=== PATIENT | female | born 1935 | race Caucasian/White ===

== ENCOUNTER → 2023-09-17 12:11 | Outpatient (REF) | payer MEDICARE, SELFPAY ==
[2023-09-17 12:39] LABS: % Basophils 0.6 %; % Eosinophils 4.4 %; % Immature Granulocytes 0.3 %; % Lymphocytes 31.5 %; % Monocytes 12.4 %; % Neutrophils 50.8 %; Absolute Eosinophils 0.3 10^3/uL; Absolute Lymphocytes 2.1 10^3/uL; Absolute Monocytes 0.8 10^3/uL; Absolute Neutrophils 3.4 10^3/uL; Hematocrit 32.2 %; Hemoglobin 9.9 g/dL; Mean Corp Hgb Conc. 30.7 g/dL; Mean Corpuscular Hgb 24.4 pg; Mean Corpuscular Volume 79.3 fL; Mean Platelet Volume 11.5 fL; Nucleated Red Blood Cells % 0 %; Platelet Count 310 10^3/uL; Red Blood Cell Count 4.06 10^6/uL; Red Cell Dist. Width 14.7 %; White Blood Cell Count 6.6 10^3/uL
[2023-09-17 13:09] LABS: ALT (SGPT) < 10 U/L; AST (SGOT) 20 U/L; Albumin 3.2 g/dl; Alkaline Phosphatase 64 U/L; Blood Urea Nitrogen 30 mg/dl; Carbon Dioxide 24 mmol/L; Chloride 103 mmol/L; Glucose 91 mg/dl; HDL Cholesterol 66 mg/dl; LDL Cholesterol, Calculated 103 mg/dl; Potassium 4.9 mmol/L; Sodium 136 mmol/L; Total Bilirubin 0.4 mg/dl; Total Cholesterol 179 mg/dl; Total Protein 5.4 g/dl; Triglyceride 50 mg/dl; Very Low Density Lipoprotein 10 mg/dl
[2023-09-17 13:26] LABS: Free T4 0.95 ng/dl; Vitamin D, 25-OH*** 15.1 ng/mL
[2023-09-17 13:39] LABS: TSH 0.06 uIU/ml
[2023-09-17 13:59] LABS: Vitamin B12 267 pg/ml
[2023-09-18 11:06] LABS: Glycohemoglobin (HgbA1c) 5.8 %
== END ==
LOC: OLABMERCHI 12:11
PROVIDERS: ATTENDING PHYSICIAN Hospitalist
DX: D64.9 Anemia, unspecified (principal); R94.4 Abnormal results of kidney function studies; E78.5 Hyperlipidemia, unspecified; E03.9 Hypothyroidism, unspecified; E11.9 Type 2 diabetes mellitus without complications; D51.9 Vitamin B12 deficiency anemia, unspecified; E55.9 Vitamin D deficiency, unspecified
CPT/HCPCS: 36415; 80053; 80061; 82306; 82607; 83036; 84439; 84443; 85025

== ENCOUNTER → 2023-12-03 09:36 | Outpatient (REF) | payer MEDICARE, SELFPAY ==
[2023-12-03 11:02] LABS: Blood Urea Nitrogen 20 mg/dl; Calcium 9.3 mg/dl; Carbon Dioxide 26 mmol/L; Chloride 106 mmol/L; Glucose 90 mg/dl; Potassium 4.9 mmol/L; Sodium 135 mmol/L
== END ==
LOC: OLABMERCHI 09:36
PROVIDERS: ATTENDING PHYSICIAN Hospitalist; FAMILY PHYSICIAN Nurse Practitioner Gerontology
DX: R94.4 Abnormal results of kidney function studies (principal)
CPT/HCPCS: 36415; 80048

== ENCOUNTER → 2024-09-01 09:14 | Outpatient (REF) | payer MEDICARE, SELFPAY ==
[2024-09-01 10:21] LABS: % Basophils 0.5 % (0-2); % Eosinophils 3.5 % (0-6); % Immature Granulocytes 0.8 % (0-0.5); % Lymphocytes 25.6 % (20.5-51.1); % Monocytes 10.3 % (1.7-9.3); % Neutrophils 59.3 % (42.2-75.2); Absolute Eosinophils 0.3 10^3/uL (0-0.7); Absolute Immature Granulocytes 0.1 10^3/uL (0-0.05); Absolute Monocytes 0.8 10^3/uL (0.1-0.6); Absolute Neutrophils 4.6 10^3/uL (1.4-6.5); Hematocrit 22.7 % (37.0-47.0); Hemoglobin 6.3 g/dL (12.0-16.0); Mean Corp Hgb Conc. 27.8 g/dL (33.0-37.0); Mean Corpuscular Hgb 19.7 pg (27.0-31.0); Mean Corpuscular Volume 70.9 fL (81.0-99.0); Mean Platelet Volume 9.6 fL (7.4-10.4); Nucleated Red Blood Cells % 0 %; Platelet Count 433 10^3/uL (130-400); Red Cell Dist. Width 17.3 % (11.5-14.5); White Blood Cell Count 7.8 10^3/uL (4.8-10.8)
[2024-09-01 10:41] LABS: ALT (SGPT) < 10 U/L (0-35); AST (SGOT) 18 U/L (14-36); Albumin 3.2 g/dl (3.5-5.0); Alkaline Phosphatase 54 U/L (38-126); Blood Urea Nitrogen 26 mg/dl (7-17); Calcium 8.6 mg/dl (8.4-10.2); Carbon Dioxide 27 mmol/L (22-30); Chloride 100 mmol/L (98-107); Glucose 99 mg/dl (70-99); Potassium 4.7 mmol/L (3.5-5.1); Sodium 136 mmol/L (135-145); Total Bilirubin 0.1 mg/dl (0.2-1.3); Total Protein 5.4 g/dl (6.3-8.2); eGFR 33.52
[2024-09-03 02:15] LABS: ANA, IgG Reflex to HEp-2 None Detected (None Detected)
[2024-09-04 13:14] LABS: Albumin 3.09 g/dL (3.75-5.01); Alpha 1 Globulin 0.29 g/dL (0.19-0.46); Alpha 2 Globulin 0.65 g/dL (0.48-1.05); SPEP IFE Reflex IFE Done; Total Protein-Electrophoresis 5.3 g/dL (6.3-8.2)
[2024-09-05 06:44] LABS: IgA 101 mg/dL (68-408); IgG 656 mg/dL (768-1632); IgM 26 mg/dL (35-263)
== END ==
LOC: OLABMERCHI 09:14
PROVIDERS: ATTENDING PHYSICIAN Hospitalist; FAMILY PHYSICIAN Internal Medicine Hematology & Oncology
DX: N18.9 Chronic kidney disease, unspecified (principal); I10 Essential (primary) hypertension
CPT/HCPCS: 36415; 80053; 82784; 84155; 84165; 85025; 86038; 86334

== ENCOUNTER 2024-09-02 06:26 | Inpatient (IN) | payer MEDICARE, BC, SELFPAY ==
[2024-09-01 19:20] VITALS: BP 131/75
[2024-09-01 19:40] LABS: % Basophils 0.2 % (0-2); % Eosinophils 1.1 % (0-6); % Immature Granulocytes 0.5 % (0-0.5); % Lymphocytes 11.8 % (20.5-51.1); % Monocytes 6.6 % (1.7-9.3); % Neutrophils 79.8 % (42.2-75.2); Absolute Eosinophils 0.2 10^3/uL (0-0.7); Absolute Immature Granulocytes 0.1 10^3/uL (0-0.05); Absolute Lymphocytes 1.6 10^3/uL (1.2-3.4); Absolute Monocytes 0.9 10^3/uL (0.1-0.6); Absolute Neutrophils 10.9 10^3/uL (1.4-6.5); Hematocrit 25.3 % (37.0-47.0); Hemoglobin 7.1 g/dL (12.0-16.0); Mean Corp Hgb Conc. 28.1 g/dL (33.0-37.0); Mean Corpuscular Hgb 19.8 pg (27.0-31.0); Mean Corpuscular Volume 70.5 fL (81.0-99.0); Mean Platelet Volume 8.6 fL (7.4-10.4); Nucleated Red Blood Cells % 0 %; Platelet Count 470 10^3/uL (130-400); Red Blood Cell Count 3.59 10^6/uL (4.20-5.40); Red Cell Dist. Width 17.3 % (11.5-14.5); White Blood Cell Count 13.6 10^3/uL (4.8-10.8)
[2024-09-01 19:49] LABS: ALT (SGPT) 12 U/L (0-35); AST (SGOT) 21 U/L (14-36); Albumin 3.9 g/dl (3.5-5.0); Alkaline Phosphatase 70 U/L (38-126); Blood Urea Nitrogen 32 mg/dl (7-17); Carbon Dioxide 25 mmol/L (22-30); Chloride 98 mmol/L (98-107); Glucose 133 mg/dl (70-99); Potassium 4.5 mmol/L (3.5-5.1); Sodium 131 mmol/L (135-145); Total Bilirubin 0.1 mg/dl (0.2-1.3); Total Protein 6.3 g/dl (6.3-8.2); eGFR 36.41
[2024-09-01 19:57] LABS: Anisocytosis 3+; Hypochromasia 3+; Macrocytosis 3+; Ovalocytes 1+; Stomatocytes 1+; Target Cells Occasional
[2024-09-01 19:58] LABS: Tear Drop Red Blood Cells Occasional
[2024-09-01 20:21] LABS: Normal RBC Morphology No
[2024-09-02] VITALS (17 sets, daily range): BP systolic 121–143; BP diastolic 63–79; PULSE 100–101; O2SAT 98; BMI 20.7; BMI 29.2
--- NOTE | 2024-09-02 01:43 | ED.GENMED ---
History of Present Illness
General
Chief Complaint: Abnormal Lab Value
Exam Limitations: none
Time Seen by Provider: 09/02/24 00:41
Nursing documentation reviewed up to this point in time: agreed with
History of Present Illness
History of Present Illness:
Patient is an 89-year-old female from assisted living sent for low hemoglobin. Patient felt weak last week and had blood work ordered and was sent to the ER for abnormal low hemoglobin of 6.3.(Patient had blood work done here at [facility]
this morning at 7:50 AM) she currently does not feel weak at this time. She does have a history of chronic kidney disease and family reports she was recently seen by [facility] . They are going to monitor her renal
function and plan to do a urinalysis and renal ultrasound.
Patient again has no complaints presently does not feel weak now denies any chest pain shortness of breath.
She is not on blood thinners. She denies any black stool.
Review of Systems
Review of Systems
Allergies reviewed?: Yes
All Other Systems: ROS reviewed and negative except as documented in HPI and ROS
Constitutional: Reports no symptoms, fatigue and other (Pt had weakness last week has since resolved ); Denies fever or chills
Respiratory: Reports no symptoms
Cardiac: Reports no symptoms
ABD/GI: Reports no symptoms; Denies bloody stools or black stools
: Reports no symptoms
Musculoskeletal: Reports no symptoms
Skin: Reports no symptoms
Neurological: Reports no symptoms
Endocrine: Reports no symptoms
Psychiatric: Reports no symptoms
Phy Exam
General Physical Exam
General Presentation: no apparent distress
General age: appears stated age
General Skin: warm and dry
General Habitus: normal
General Mental: alert
General Hydration: appears well hydrated
Cardiovascular Exam
Cardiovascular Exam: regular rate/rhythm, normal peripheral pulses and systolic murmur
Pulmonary Exam
Pulmonary Exam: lungs clear and no respiratory distress
Gastrointestinal Exam
Gastrointestinal Exam: non tender, soft and other (brown stool heme neg )
Neurological Exam
Neurological Exam: alert and oriented x3
Musculoskeletal Exam
Musculoskeletal Exam: full ROM
Skin Exam
Skin Exam: normal color and warm/dry
Psychiatric Exam
Psychiatric Exam: normal mood/affect
Course
Orders/Labs/Results
Orders:
Orders
09/01/24 19:30
Type And Crossmatch [Type+Screen] Urgent
Complete Blood Count/With Diff Urgent
Comprehensive Metabolic Panel Urgent
09/01/24 19:49
ABO2 Urgent
BBK Wristband Number:
Associate notified that ABO2 has been ordered: [id number]
Date: 09/01/24
Time: 19:37
Public Health Policy Analyst ID: [id number]
Abnormal Lab Results
09/01/24
19:30
WBC 13.6 H 10^3/uL
(4.8-10.8)
RBC 3.59 L 10^6/uL
(4.20-5.40)
Hgb 7.1 L g/dL
(12.0-16.0)
Hct 25.3 L %
(37.0-47.0)
MCV 70.5 L fL
(81.0-99.0)
MCH 19.8 L pg
(27.0-31.0)
MCHC 28.1 L g/dL
(33.0-37.0)
RDW 17.3 H %
(11.5-14.5)
Plt Count 470 H 10^3/uL
(130-400)
Abs Immat Gran (auto) 0.1 H 10^3/uL
(0-0.05)
Absolute Neuts (auto) 10.9 H 10^3/uL
(1.4-6.5)
Absolute Monos (auto) 0.9 H 10^3/uL
(0.1-0.6)
Neutrophils % 79.8 H %
(42.2-75.2)
Lymphocytes % 11.8 L %
(20.5-51.1)
Sodium 131 L mmol/L
(135-145)
BUN 32 H mg/dl
(7-17)
Creatinine 1.4 H mg/dL
(0.6-1.0)
Glucose 133 H mg/dl
(70-99)
Total Bilirubin 0.1 L mg/dl
(0.2-1.3)
09/01/24 19:30
09/01/24 19:30
Vital Signs
Initial and Last Documented VS:
Initial Vital Signs
Temp Pulse Resp BP Pulse Ox
97.8 F 108 18 131/75 98
09/01/24 19:20 09/01/24 19:20 09/01/24 19:20 09/01/24 19:20 09/01/24 19:20
Last Documented Vital Signs
Temp Pulse Resp BP Pulse Ox
97.8 F 90 19 133/64 98
09/01/24 19:20 09/02/24 01:15 09/02/24 01:15 09/02/24 01:04 09/02/24 01:15
X Ray Developer consulted with Physician
X Ray Developer consulted with physician?: Yes
Name of Physician Consulted: Noh
MDM/Problems Addressed
Differential Diagnosis Includes:
not limited to: Anemia, GI bleed, anemia of chronic disease
MDM/Problems Addressed:
Patient is an 89-year-old female with new onset anemia. Patient has been feeling weak last week though does feel slightly improved this week . Patient's hemoglobin from this morning was 6 .3 repeat 7.1. CBC reviewed occasional teardrop cells with
new onset anemia and symptoms Case discussed ED physician would recommend admission and transfusion for 1 unit of packed red blood cells. heme neg Consent obtained.
Pt with renal insufficiency recently saw outpatient nephrology . US was reccomended but not done yet.
Chronic conditions affecting care:
Renal insufficiency
*Pulse Oximetry
Patient hypoxic: no
*Critical Care Note
Total Time (30-74mins, 75-104mins- exclusive of procedures): Not Applicable
ED Attending Note
-
Portions of this chart may have been created with voice recognition software.� Occasional wrong word or��sound alike� substitutions may have occurred due to the inherent limitations of voice recognition software.
Discharge Plan
Departure
Patient Disposition: Admit
Date of Disposition: 09/02/24
Time of Disposition: 02:54
Admit to: Med/Surg
Admit to doctor: bubba
Presentation/result/management discussed w/ accepting MD/DO: Hospitalist
Patient with high blood pressure during this ER visit?: Yes
Condition: Fair
Covid-19: Not Applicable
Discharge Problem:
Anemia
Referrals:
Huyen Simon, DO [Family Provider] -
Interventions
Interventions:
*Risk Screen - Suicide Last Done: 09/01/24 19:20
*General Assessment Last Done: 09/01/24 19:20
*Neglect/Abuse Screening Last Done: 09/01/24 19:20
ED- Fall Risk Assessment Last Done: 09/02/24 01:07
*ED COVID-19 Vaccine History Last Done: 09/01/24 19:20
Discharge Date and Time
Print Language: WELSH
--- NOTE | 2024-09-02 06:21 | HPS.HSE ---
Family Physician
-
Family Physician: Huyen Simon DO
Chief Complaint
-
Abnormal Lab
History of Present Illness
Patient is an 89y F with PMH significant for CKD who presents to ED for evaluation of anemia. Patient states that she has been feeling very weak for several weeks. No other focal / specific symptoms. No noted blood loss including bloody or
black stools, hematuria, bloody nose, etc. Patient had outpatient labs done and Hgb this Am was noted to be very low at 6.3 g/dL. Patient was advised to present to the ED for further evaluation.
Patient denies any chest pain or dyspnea. She was not aware of any prior history of anemia - though prior values here show chronic anemia with previous baseline in the 9-10 range.
Medical History
Past Medical History
Past Medical History: Reports Other
Additional Past Medical History:
CKD
Past Surgical History: Reports None
Social History
Tobacco: Non-smoker
Alcohol: None
Family History
Family History: Not pertinent
Allergies / Home Medications
Allergies reflects when Allergies were last updated in [employer].
Home Medications with original date entered in [employer]
Allergy/Medication List:
Allergies
Allergy/AdvReac Type Severity Reaction Status Date / Time
No Known Allergies Allergy Unverified 09/01/24 19:20
Home Medications
L-Methyfola 7.5 mg PO DAILY 09/02/24
Tylenol 650 mg PO Q6H PRN pain 09/02/24
Vitamin D3 50 mcg PO DAILY 09/02/24
Review of Systems
-
History Source: Patient
A 12 point ROS was completed and negative except as noted: Yes
Constitutional: Reports Fatigue; Denies Fever or Chills
Respiratory: Denies Cough or Trouble Breathing
Cardiac: Denies Chest Pain or Palpitations
Abdomen/GI: Denies Abdominal Pain, Nausea, Vomiting, Diarrhea, Bloody Stools or Black Stools
: Denies Dysuria, Frequency or Bleeding
Musculoskeletal: Denies Joint Pain or Edema
Neurological: Denies Dizzy or Headache
Psych: Denies Depression or Anxiety
Physical Exam
Vital Signs
Vital Signs
Temp Pulse Resp BP Pulse Ox
98.7 F 87 20 134/67 97
09/02/24 05:41 09/02/24 05:41 09/02/24 05:41 09/02/24 05:41 09/02/24 03:38
Physical Exam
General: Other (89y F pale-appearing and in no acute distress.)
HEENT: Moist mucous membranes and PERRLA
Respiratory: Clear; No Wheezes, Rales or Rhonchi
Cardiac: S1/S2 and Regular Rhythm; No Murmur
GI: Soft, Non Tender, Non Distended and Normal Bowel Sounds
Musculoskeletal: No Clubbing, No Cyanosis and No Edema
Neuro: AO x 3 and Nonfocal/grossly intact
Laboratory Results
-
09/01/24 19:30
09/01/24 19:30
Laboratory Results
Total Bilirubin 0.1 mg/dl (0.2-1.3) L 09/01/24 19:30
AST 21 U/L (14-36) 09/01/24 19:30
ALT 12 U/L (0-35) 09/01/24 19:30
Alkaline Phosphatase 70 U/L (38-126) 09/01/24 19:30
Impression/Plan
-
A/P: Patient is an 89y F with PMH significant for CKD (recently noted / diagnosed) who presents to ED for evaluation of anemia.
Symptomatic Anemia
- Admit for further evaluation and treatment.
- Unknown acuity - but patient complaining of fatigue recently.
- No evidence source of blood loss.
- Heme negative stool in the ED.
- Check iron studies, retic count, B12, etc.
- Follow H&H for changes.
- ? anemia of CKD given that history.
CKD
- Stable. Renal function at / near known baseline.
- Check renal US.
- Follow for any changes.
DVT Prophylaxis: SCDs
Code Status: Full
[2024-09-02 07:31] LABS: Reticulocyte Count 0.8 % (0.4-2.8)
[2024-09-02 07:52] LABS: Iron 37 ug/dl (37-170)
[2024-09-02 08:02] LABS: Percent Saturation 8 % (20-50); Total Iron Binding Capacity 436 ug/dl (265-497)
[2024-09-02 08:24] LABS: TSH Reflex To Free T4 0.23 uIU/ml (0.47-4.68)
[2024-09-02 08:28] LABS: Ferritin 4.9 ng/ml (11.1-264.0)
[2024-09-02 08:37] LABS: Urine Albumin Negative (Neg - Trace); Urine Bilirubin Negative (Negative); Urine Character Clear (Clear); Urine Color Yellow; Urine Glucose Negative (Negative); Urine Ketone Negative (Negative); Urine Leukocyte Negative (Negative); Urine Nitrite Negative (Negative); Urine Occult Blood Negative (Negative); Urine Urobilinogen Negative (Neg - 1+)
[2024-09-02 08:59] LABS: Folate > 20.0 ng/ml (2.76-20); Vitamin B12 265 pg/ml (239-931)
[2024-09-02 09:35] LABS: Free T4 0.95 ng/dl (0.78-2.19)
[2024-09-02 13:14] LABS: % Basophils 0.3 % (0-2); % Eosinophils 0.7 % (0-6); % Immature Granulocytes 0.4 % (0-0.5); % Lymphocytes 13.4 % (20.5-51.1); % Monocytes 12.1 % (1.7-9.3); % Neutrophils 73.1 % (42.2-75.2); Absolute Eosinophils 0.1 10^3/uL (0-0.7); Absolute Lymphocytes 1.5 10^3/uL (1.2-3.4); Absolute Monocytes 1.3 10^3/uL (0.1-0.6); Absolute Neutrophils 8.1 10^3/uL (1.4-6.5); Hematocrit 25.2 % (37.0-47.0); Hemoglobin 7.4 g/dL (12.0-16.0); Mean Corp Hgb Conc. 29.4 g/dL (33.0-37.0); Mean Corpuscular Hgb 21.3 pg (27.0-31.0); Mean Corpuscular Volume 72.4 fL (81.0-99.0); Mean Platelet Volume 9.6 fL (7.4-10.4); Nucleated Red Blood Cells % 0 %; Platelet Count 408 10^3/uL (130-400); Red Blood Cell Count 3.48 10^6/uL (4.20-5.40); Red Cell Dist. Width 18.9 % (11.5-14.5)
--- NOTE | 2024-09-02 13:33 | W.PN.HOSP.TC ---
Today's Communication/Plan
-
IV iron
Oral B12
CBC in the morning
Assessment / Plan
Assessment / Plan
Gen-awake, alert, NAD
HEENT-NC, AT, anicteric, clear oral mm
Neck-supple
CV-reg, no M, +S1/S2
Lungs-clear B/L
Abd-soft, NT, ND
Ext-no edema
Musculoskeletal-no cyanosis, clubbing
Skin-warm and dry
Neuro-grossly non-focal
Psych-calm, cooperative
Symptomatic anemia -improved symptoms after transfusion. Hemoglobin 7.4 this morning, will recheck tomorrow morning.
Iron deficiency anemia noted on labs. Start IV iron. Will need outpatient GI follow-up for EGD and colonoscopy. Text message sent to GI office front desk manager to schedule. Discussed with patient and brother on the phone.
B12 deficiency noted, start oral repletion.
Patient denies bloody stools or black stools. Denies use of NSAIDs.
Hyponatremia -131.
CKD 3B -stable.
Dementia -unknown type.
Full code
Dispo -likely discharge tomorrow if stable. Will need outpatient follow-up. Discussed with brother on the phone.
Anticipated Discharge: Within 24 hours
Subjective/Interval History
-
Date of Service: September 02, 2024
Patient seen and examined. No complaints.
Objective Data
-
Labs:
Laboratory Results
09/02/24 09/02/24
07:20 13:01
WBC 11.0 H Cancelled
Hgb 7.4 L Cancelled
Hct 25.2 L Cancelled
Plt Count 408 H Cancelled
Vital Signs:
Vital Signs
Temp Pulse Resp BP Pulse Ox
98.5 F 90 18 143/74 97
09/02/24 10:50 09/02/24 10:50 09/02/24 10:50 09/02/24 10:50 09/02/24 10:50
I&O
09/01/24 09/02/24 09/03/24
06:59 06:59 06:59
Intake Total 250 / 250
Balance 250 / 250
Review of Systems
-
History Source: Patient
All other systems: Reviewed and negative
--- NOTE | 2024-09-02 15:39 | CM ---
Addendum entered by Kim Chauhan 09/02/24 16:11:
Spoke with Brother Ruben, he will transport patient back tomorrow. Please call when ready for d/c. He will need to sign IMM.
Original Note:
Patient seen bedside.
patient from [facility] p# [phone].
Spoke with Janee Carlos/director patient ambulatory in room, sent over to hospital for blood work.
patient currently getting IV FE.
Per Janee able to accept back tomorrow.
Brother may be able to transport back, CM attempted to reach brother via Cell phone, no answer, attempted home phone- disconnected.
Patient would qualify for ambulance transport and will need IMM completed.
[facility]
report#[phone]
[2024-09-02] MEDS: FERRLECIT 110 MG IV (15:53)
[2024-09-02] MEDS: VITAMIN B-12 1000 MCG PO (15:54)
[2024-09-03 07:03] VITALS: BP 143/82
[2024-09-03 08:08] LABS: Blood Urea Nitrogen 26 mg/dl (7-17); Calcium 8.8 mg/dl (8.4-10.2); Carbon Dioxide 24 mmol/L (22-30); Chloride 102 mmol/L (98-107); Estimated Creatinine Clearance 17 ml/min; Glucose 98 mg/dl (70-99); Potassium 4.5 mmol/L (3.5-5.1); Sodium 135 mmol/L (135-145); eGFR 43.81
[2024-09-03 08:22] LABS: Hematocrit 26.1 % (37.0-47.0); Hemoglobin 7.9 g/dL (12.0-16.0); Mean Corp Hgb Conc. 30.3 g/dL (33.0-37.0); Mean Corpuscular Hgb 21.5 pg (27.0-31.0); Mean Corpuscular Volume 71.1 fL (81.0-99.0); Mean Platelet Volume 9.4 fL (7.4-10.4); Platelet Count 432 10^3/uL (130-400); Red Blood Cell Count 3.67 10^6/uL (4.20-5.40); Red Cell Dist. Width 18.6 % (11.5-14.5); White Blood Cell Count 10.9 10^3/uL (4.8-10.8)
[2024-09-03] MEDS: VITAMIN B-12 1000 MCG PO (08:23)
--- NOTE | 2024-09-03 10:18 | W.DS.TRANS ---
DC Summary - Cane Pusher
-
Discharge Instructions:
Discharge Diagnosis/Procedures Iron deficiency anemia
Diet Regular
Activity As tolerated
Driving Restrictions No driving
Bathing Restrictions None
Blood Work CBC in 1 week with your primary care doctor
Instructions:
Stand-Alone Forms:
Changes to Home Medications: No
Discharge Medications:
DC Medications w/original date entered in [employer]
acetaminophen 325 mg tablet (Tylenol) 650 mg PO Q6HPRN PRN mild pain 09/02/24
cholecalciferol (vitamin D3) 50 mcg (2,000 unit) capsule (Vitamin D3) 50 mcg PO DAILY 09/02/24
cyanocobalamin (vitamin B-12) 1,000 mcg tablet 1,000 mcg PO DAILY #30 tabs 09/02/24
ferrous sulfate 325 mg (65 mg iron) tablet 325 mg PO DAILY #30 tabs 09/02/24
levomefolate 7.5 mg-algal oil 90.314 mg capsule (L-Methylfolate Forte) 1 cap PO DAILY 09/02/24
Home Medication Changes
Pending Results: No
--- NOTE | 2024-09-03 10:20 | W.PN.HOSP.TC ---
Today's Communication/Plan
-
Discharge
Assessment / Plan
Assessment / Plan
Gen-awake, alert, NAD
HEENT-NC, AT, anicteric, clear oral mm
Neck-supple
CV-reg, no M, +S1/S2
Lungs-clear B/L
Abd-soft, NT, ND
Ext-no edema
Musculoskeletal-no cyanosis, clubbing
Skin-warm and dry
Neuro-grossly non-focal
Psych-calm, cooperative
Symptomatic anemia -improved symptoms after 1 unit PRBC transfusion. Hemoglobin improved to 7.9 today. Check CBC next week with primary care doctor.
Iron deficiency anemia noted on labs. Discharged on oral iron. Will need outpatient GI follow-up for EGD and colonoscopy. She has an appointment to follow-up with GI on September 05.
B12 deficiency noted, start oral repletion.
Patient denies bloody stools or black stools. Denies use of NSAIDs.
Hyponatremia - resolved.
SHAMA on CKD 3B -renal function improved. SHAMA present on admission.
Dementia -unknown type.
Full code
Dispo -medically stable for discharge today. Updated patient's brother on the phone. All questions answered.
32 minutes spent in discharge process.
Anticipated Discharge: Today
Subjective/Interval History
-
Date of Service: September 03, 2024
Patient seen and examined. No complaints.
Objective Data
-
Labs:
Laboratory Results
09/03/24
07:21
WBC 10.9 H
Hgb 7.9 L
Hct 26.1 L
Plt Count 432 H
Sodium 135
Potassium 4.5
Chloride 102
Carbon Dioxide 24
BUN 26 H
Creatinine 1.2 H
Glucose 98
Calcium 8.8
Vital Signs:
Vital Signs
Temp Pulse Resp BP Pulse Ox
97.4 F 94 18 143/82 95
09/03/24 07:03 09/03/24 07:03 09/03/24 07:03 09/03/24 07:03 09/03/24 07:30
I&O
09/02/24 09/03/24 09/04/24
06:59 06:59 06:59
Intake Total 250 / 250 720 / 720
Balance 250 / 250 720 / 720
Review of Systems
-
Unable to obtain full review of systems at this time due to: Dementia
History Source: Patient
All other systems: Reviewed and negative
--- NOTE | 2024-09-03 10:55 | CM ---
Patient seen at bedside.
Discharge today to [facility]
PT rec HH
Spoke with Alma liaison from [facility]. They can accept
CM consult completed - VN
Spoke with brothemilio Miranda - will transport
IMM explained & signed. In chart
PLAN[facility]
report#[phone]

[facility] fax #: [phone]
[2024-09-03 11:28] VITALS: BP 109/57
== END 2024-09-03 12:50 | disposition home or self-care (01) | DRG 812 ==
LOC: 4 WEST ACU 06:26
PROVIDERS: Emergency Medicine; Nurse Practitioner; ADMITTING PHYSICIAN Hospitalist; ATTENDING PHYSICIAN Hospitalist; EMERGENCY PHYSICIAN Emergency Medicine; FAMILY PHYSICIAN Hospitalist
PROC: 30233N1 Transfusion of Nonautologous Red Blood Cells into Peripheral Vein, Percutaneous Approach (ICD-10-PCS; 2024-09-02)
DX: D50.9 Iron deficiency anemia, unspecified (principal); E87.1 Hypo-osmolality and hyponatremia; N17.9 Acute kidney failure, unspecified; N18.32 Chronic kidney disease, stage 3b; F03.90 Unspecified dementia, unspecified severity, without behavioral disturbance, psychotic disturbance, mood disturbance, and anxiety; E53.8 Deficiency of other specified B group vitamins
CPT/HCPCS: 36415; 36430; 73502; 76770; 80048; 80053; 81003; 82607; 82728; 82746; 83540; 83550; 84155; 84165; 84439; 84443; 85025; 85027; 85045; 86038; 86850; 86900; 86901; 86920; 87070; 93005; 97162; 97165; 99285; J2916; P9016

== ENCOUNTER → 2024-09-08 12:27 | Outpatient (REF) | payer MEDICARE, BC, SELFPAY ==
[2024-09-08 13:07] LABS: % Basophils 0.5 % (0-2); % Immature Granulocytes 0.3 % (0-0.5); % Lymphocytes 31.6 % (20.5-51.1); % Neutrophils 52.6 % (42.2-75.2); Absolute Eosinophils 0.2 10^3/uL (0-0.7); Absolute Lymphocytes 1.9 10^3/uL (1.2-3.4); Absolute Monocytes 0.7 10^3/uL (0.1-0.6); Absolute Neutrophils 3.2 10^3/uL (1.4-6.5); Hematocrit 26.8 % (37.0-47.0); Hemoglobin 7.7 g/dL (12.0-16.0); Mean Corp Hgb Conc. 28.7 g/dL (33.0-37.0); Mean Corpuscular Hgb 21.4 pg (27.0-31.0); Mean Corpuscular Volume 74.4 fL (81.0-99.0); Mean Platelet Volume 9.8 fL (7.4-10.4); Nucleated Red Blood Cells % 0 %; Platelet Count 424 10^3/uL (130-400); Red Cell Dist. Width 20.3 % (11.5-14.5); White Blood Cell Count 6.1 10^3/uL (4.8-10.8)
== END ==
LOC: OLABMERCHI 12:27
PROVIDERS: ATTENDING PHYSICIAN Hospitalist
DX: D50.9 Iron deficiency anemia, unspecified (principal); I25.10 Atherosclerotic heart disease of native coronary artery without angina pectoris; E11.9 Type 2 diabetes mellitus without complications; I50.9 Heart failure, unspecified
CPT/HCPCS: 36415; 85025

== ENCOUNTER → 2024-09-15 11:44 | Outpatient (REF) | payer MEDICARE, BC, SELFPAY ==
[2024-09-15 12:27] LABS: % Basophils 0.3 % (0-2); % Eosinophils 4.4 % (0-6); % Immature Granulocytes 0.3 % (0-0.5); % Lymphocytes 31.9 % (20.5-51.1); % Monocytes 12.6 % (1.7-9.3); % Neutrophils 50.5 % (42.2-75.2); Absolute Eosinophils 0.3 10^3/uL (0-0.7); Absolute Lymphocytes 2.1 10^3/uL (1.2-3.4); Absolute Monocytes 0.8 10^3/uL (0.1-0.6); Absolute Neutrophils 3.2 10^3/uL (1.4-6.5); Hematocrit 25.9 % (37.0-47.0); Hemoglobin 7.6 g/dL (12.0-16.0); Mean Corp Hgb Conc. 29.3 g/dL (33.0-37.0); Mean Corpuscular Hgb 22.3 pg (27.0-31.0); Mean Platelet Volume 10.3 fL (7.4-10.4); Nucleated Red Blood Cells % 0 %; Platelet Count 346 10^3/uL (130-400); Red Blood Cell Count 3.41 10^6/uL (4.20-5.40); Red Cell Dist. Width 21.1 % (11.5-14.5); White Blood Cell Count 6.4 10^3/uL (4.8-10.8)
== END ==
LOC: OLABMERCHI 11:44
PROVIDERS: ATTENDING PHYSICIAN Hospitalist
DX: E55.9 Vitamin D deficiency, unspecified (principal); I10 Essential (primary) hypertension; D64.9 Anemia, unspecified
CPT/HCPCS: 36415; 85025

== ENCOUNTER 2024-10-03 14:49 | Emergency (ER) | payer MEDICARE, BC, SELFPAY ==
[2024-10-03 14:54] VITALS: BP 110/67
[2024-10-03 15:34] LABS: % Basophils 0.5 % (0-2); % Eosinophils 1.1 % (0-6); % Immature Granulocytes 0.5 % (0-0.5); % Lymphocytes 17.2 % (20.5-51.1); % Monocytes 10.4 % (1.7-9.3); % Neutrophils 70.3 % (42.2-75.2); Absolute Eosinophils 0.1 10^3/uL (0-0.7); Absolute Lymphocytes 1.1 10^3/uL (1.2-3.4); Absolute Monocytes 0.7 10^3/uL (0.1-0.6); Absolute Neutrophils 4.7 10^3/uL (1.4-6.5); Hematocrit 37.7 % (37.0-47.0); Mean Corp Hgb Conc. 29.2 g/dL (33.0-37.0); Mean Corpuscular Hgb 22.5 pg (27.0-31.0); Mean Corpuscular Volume 77.1 fL (81.0-99.0); Mean Platelet Volume 10.4 fL (7.4-10.4); Nucleated Red Blood Cells % 0 %; Platelet Count 369 10^3/uL (130-400); Red Blood Cell Count 4.89 10^6/uL (4.20-5.40); Red Cell Dist. Width 22.9 % (11.5-14.5); White Blood Cell Count 6.6 10^3/uL (4.8-10.8)
[2024-10-03 15:49] LABS: ALT (SGPT) 13 U/L (0-35); AST (SGOT) 23 U/L (14-36); Albumin 4.4 g/dl (3.5-5.0); Alkaline Phosphatase 71 U/L (38-126); Blood Urea Nitrogen 30 mg/dl (7-17); Calcium 10.2 mg/dl (8.4-10.2); Carbon Dioxide 22 mmol/L (22-30); Chloride 94 mmol/L (98-107); Glucose 144 mg/dl (70-99); Potassium 4.6 mmol/L (3.5-5.1); Sodium 134 mmol/L (135-145); Total Bilirubin 0.8 mg/dl (0.2-1.3); Total Protein 6.6 g/dl (6.3-8.2); eGFR 36.41
[2024-10-03 15:50] LABS: Anisocytosis 2+; Normal RBC Morphology No
[2024-10-03 15:51] LABS: Hypochromasia 2+; Microcytosis 1+
[2024-10-03 15:52] LABS: Acanthocytes Occasional; Ovalocytes 1+
[2024-10-03 17:02] VITALS: BP 114/86
--- NOTE | 2024-10-03 17:06 | ED.GENMED ---
History of Present Illness
General
Chief Complaint: Weakness
Source: patient and family
Exam Limitations: none
Time Seen by Provider: 10/03/24 16:31
Nursing documentation reviewed up to this point in time: agreed with
History of Present Illness
History of Present Illness:
Patient to ED for concern of weakness. Family states she was admitted here earlier this month and treated for anemia. SHe was transfused while here and discharged on FeSO4 and B12. Family states facililty reported that she seemed weak today and
were concerned that she is anemic again. Brought to ED by family for eval.
Past History
Past History
ED Past Medical History: Renal failure (CKD), Psychiatric (dementia) and Other (anemia)
Review of Systems
Review of Systems
Allergies reviewed?: Yes
All Other Systems: ROS reviewed and negative except as documented in HPI and ROS
Constitutional: Reports no symptoms
EENT: Reports no symptoms
Respiratory: Reports no symptoms
Cardiac: Reports no symptoms
ABD/GI: Reports no symptoms
: Reports no symptoms
Musculoskeletal: Reports no symptoms
Skin: Reports no symptoms
Neurological: Reports weakness
Psychiatric: Reports no symptoms
Phy Exam
General Physical Exam
General Presentation: well appearing and no apparent distress
General age: appears stated age
General Skin: warm and dry
General Habitus: frail
General Mental: confused (baseline) and usual mental status
General Hydration: appears well hydrated
Cardiovascular Exam
Cardiovascular Exam: regular rate/rhythm and no edema
Pulmonary Exam
Pulmonary Exam: no respiratory distress and chest non tender
Gastrointestinal Exam
Gastrointestinal Exam: non tender, soft, no organomegaly, non distended and no cva tenderness
Neurological Exam
Neurological Exam: alert, CN II-XII intact, no motor deficits, no sensory deficits, speech normal, confused (baseline) and normal gait
Musculoskeletal Exam
Musculoskeletal Exam: full ROM and neuro vasc intact
Skin Exam
Skin Exam: normal color, warm/dry and no rash
Psychiatric Exam
Psychiatric Exam: normal mood/affect
Course
Orders/Labs/Results
Orders:
Orders
10/03/24 14:56
Electrocardiogram (*1) Urgent
Reason for Study: Fatigue / Weakness
EKG- Treatment ONCE
10/03/24 15:07
Type+Screen Urgent
Complete Blood Count/With Diff Urgent
Comprehensive Metabolic Panel Urgent
10/03/24 17:10
Urinalysis Reflex To Culture Urgent
Date Specimen was Collected: 10/03/24
Time Specimen was Collected: 17:09
Urine Microscopic Reflex Cult Urgent
Urine Culture Urgent
CIPRIANO Source: U
Specimen Description:
Date Specimen was Collected: 10/03/24
Time Specimen was Collected: 17:09
Abnormal Lab Results
10/03/24 10/03/24
15:07 17:10
Hgb 11.0 L g/dL
(12.0-16.0)
MCV 77.1 L fL
(81.0-99.0)
MCH 22.5 L pg
(27.0-31.0)
MCHC 29.2 L g/dL
(33.0-37.0)
RDW 22.9 H %
(11.5-14.5)
Absolute Lymphs (auto) 1.1 L 10^3/uL
(1.2-3.4)
Absolute Monos (auto) 0.7 H 10^3/uL
(0.1-0.6)
Lymphocytes % 17.2 L %
(20.5-51.1)
Monocytes % 10.4 H %
(1.7-9.3)
Sodium 134 L mmol/L
(135-145)
Chloride 94 L mmol/L
(98-107)
BUN 30 H mg/dl
(7-17)
Creatinine 1.4 H mg/dL
(0.6-1.0)
Glucose 144 H mg/dl
(70-99)
Urine Ketones 3+ A
(Negative)
Leukocyte Esterase Rfl 2+ A
(Negative)
Urine Bacteria (Reflex) Moderate A
(Negative)
Urine Albumin (Reflex) 2+ A
(Neg - Trace)
10/03/24 15:07
10/03/24 15:07
Vital Signs
Initial and Last Documented VS:
Initial Vital Signs
Temp Pulse Resp BP Pulse Ox
97.8 F 98 16 110/67 98
10/03/24 14:54 10/03/24 14:54 10/03/24 14:54 10/03/24 14:54 10/03/24 14:54
Last Documented Vital Signs
Temp Pulse Resp BP Pulse Ox
97.8 F 87 21 113/72 97
10/03/24 14:54 10/03/24 16:45 10/03/24 16:45 10/03/24 18:00 10/03/24 17:01
*Critical Care Note
Total Time (30-74mins, 75-104mins- exclusive of procedures): Not Applicable
Update Note
Update Note:
Labs reviewed with patient and family. Hgb now 11. VSS. She is eating and drinking in dept. UA results noted. Culture is pending. Patient and family are aware that culture will result over the next 24 hours and that she will be notified if
antibiotics needed. SHe is agreeable to discharge home, relieved to find she is not in need of transfusion for anemia.
ED Attending Note
-
Portions of this chart may have been created with voice recognition software.� Occasional wrong word or��sound alike� substitutions may have occurred due to the inherent limitations of voice recognition software.
Discharge Plan
Departure
Patient Disposition: Home (Routine Discharge)
Date of Disposition: 10/03/24
Time of Disposition: 18:35
Patient with high blood pressure during this ER visit?: No
Condition: Good
Covid-19: Not Applicable
Discharge Problem:
Weakness
Instructions: Generalized Weakness (DC)
Prescriptions:
No Action
acetaminophen [Tylenol] 325 mg Tablet
650 mg PO Q6HPRN PRN (Reason: mild pain)
cholecalciferol (vitamin D3) [Vitamin D3] 50 mcg (2,000 unit) Capsule
50 mcg PO DAILY
L-Methylfolate Forte 7.5-90.314 mg Capsule
1 cap PO DAILY
cyanocobalamin (vitamin B-12) 1,000 mcg Tablet
1,000 mcg PO DAILY Qty: 30 0RF
ferrous sulfate 325 mg (65 mg iron) tablet
325 mg PO DAILY Qty: 30 0RF
Referrals:
Huyen Simon, DO [Family Provider] - Tomorrow
Interventions
Interventions:
*Risk Screen - Suicide Last Done: 10/03/24 14:54
*General Assessment Last Done: 10/03/24 18:44
*Neglect/Abuse Screening Last Done: 10/03/24 14:54
ED- Fall Risk Assessment Last Done: 10/03/24 18:44
*ED COVID-19 Vaccine History Last Done: 10/03/24 17:02
*Nursing Disposition Last Done: 10/03/24 18:44
ED- Cardiac Assessment Last Done: 10/03/24 17:01
ED- Neurological Assessment Last Done: 10/03/24 17:01
ED- Pulmonary Assessment Last Done: 10/03/24 17:01
Discharge Date and Time
Discharge Date/Time: 10/03/24 18:45
Print Language: HEBREW
[2024-10-03 17:53] LABS: Urine Albumin 2+ (Neg - Trace); Urine Bilirubin Negative (Negative); Urine Character Slightly Cloudy (Clear); Urine Color Yellow; Urine Glucose Negative (Negative); Urine Ketone 3+ (Negative); Urine Leukocyte 2+ (Negative); Urine Nitrite Negative (Negative); Urine Occult Blood Negative (Negative); Urine Specific Gravity 1.025 (<1.030); Urine Urobilinogen Negative (Neg - 1+)
[2024-10-03 18:00] VITALS: BP 113/72
[2024-10-03 18:07] LABS: Urine Mucus Few; Urine Squamous Cell 0-2 /LPF (Few)
[2024-10-03 18:08] LABS: Urine Bacteria Moderate (Negative); Urine Red Blood Cell 0-2 /HPF (0-2)
== END 2024-10-03 18:45 | disposition home or self-care (01) ==
LOC: EMR 14:49
PROVIDERS: Emergency Medicine; Nurse Practitioner; EMERGENCY PHYSICIAN Emergency Medicine; FAMILY PHYSICIAN Hospitalist
DX: R53.1 Weakness (principal)
CPT/HCPCS: 99284; 80053; 81003; 81015; 85025; 86850; 86900; 86901; 87077; 87086; 93005

== ENCOUNTER → 2024-10-04 16:23 | Outpatient (REF) | payer MEDICARE, BC, SELFPAY | LOC: RAD 16:23 | PROVIDERS: ATTENDING PHYSICIAN Internal Medicine Gastroenterology | DX: D50.0 Iron deficiency anemia secondary to blood loss (chronic) (principal); R63.4 Abnormal weight loss | CPT/HCPCS: 74176 ==

== ENCOUNTER → 2024-10-11 12:38 | Outpatient (REF) | payer MEDICARE, BC, SELFPAY | LOC: HWRAD 12:38 | PROVIDERS: ATTENDING PHYSICIAN Internal Medicine Interventional Cardiology | DX: N18.9 Chronic kidney disease, unspecified (principal) | CPT/HCPCS: 76775 ==

== ENCOUNTER → 2024-10-25 16:31 | Outpatient (REF) | payer MEDICARE, BC, SELFPAY ==
[2024-10-25 17:21] LABS: % Basophils 0.6 % (0-2); % Eosinophils 3.6 % (0-6); % Immature Granulocytes 0.1 % (0-0.5); % Lymphocytes 27.4 % (20.5-51.1); % Monocytes 10.4 % (1.7-9.3); % Neutrophils 57.9 % (42.2-75.2); Absolute Eosinophils 0.2 10^3/uL (0-0.7); Absolute Lymphocytes 1.9 10^3/uL (1.2-3.4); Absolute Monocytes 0.7 10^3/uL (0.1-0.6); Absolute Neutrophils 3.9 10^3/uL (1.4-6.5); Hematocrit 36.9 % (37.0-47.0); Mean Corp Hgb Conc. 29.8 g/dL (33.0-37.0); Mean Corpuscular Hgb 24.9 pg (27.0-31.0); Mean Corpuscular Volume 83.7 fL (81.0-99.0); Mean Platelet Volume 9.7 fL (7.4-10.4); Nucleated Red Blood Cells % 0 %; Platelet Count 378 10^3/uL (130-400); Red Blood Cell Count 4.41 10^6/uL (4.20-5.40); Red Cell Dist. Width 25.5 % (11.5-14.5); White Blood Cell Count 6.8 10^3/uL (4.8-10.8)
[2024-10-25 17:30] LABS: Blood Urea Nitrogen 30 mg/dl (7-17); Calcium 10.1 mg/dl (8.4-10.2); Carbon Dioxide 28 mmol/L (22-30); Chloride 99 mmol/L (98-107); Glucose 103 mg/dl (70-99); Iron 49 ug/dl (37-170); Potassium 4.9 mmol/L (3.5-5.1); Sodium 137 mmol/L (135-145); eGFR 36.41
[2024-10-25 17:34] LABS: Anisocytosis 2+; Normal RBC Morphology No
[2024-10-25 17:35] LABS: Hypochromasia 2+; Microcytosis 2+
[2024-10-25 17:37] LABS: Stomatocytes 1+
[2024-10-25 17:38] LABS: Ovalocytes Slight
[2024-10-25 17:39] LABS: Macrocytosis 2+
[2024-10-25 17:41] LABS: Percent Saturation 12 % (20-50); Total Iron Binding Capacity 386 ug/dl (265-497)
[2024-10-25 18:05] LABS: Ferritin 14.7 ng/ml (11.1-264.0)
[2024-10-27 22:11] LABS: ANA, IgG Reflex to HEp-2 None Detected (None Detected)
== END ==
LOC: REG 16:31
PROVIDERS: ATTENDING PHYSICIAN Internal Medicine Gastroenterology; FAMILY PHYSICIAN Hospitalist; REFERRING PHYSICIAN Internal Medicine Hematology & Oncology
DX: D50.0 Iron deficiency anemia secondary to blood loss (chronic) (principal); N18.9 Chronic kidney disease, unspecified; D10.30 Benign neoplasm of unspecified part of mouth
CPT/HCPCS: 36415; 80048; 82728; 82784; 83521; 83540; 83550; 84155; 84165; 85025; 86038; 86334

== ENCOUNTER → 2025-01-05 09:36 | Outpatient (REF) | payer MEDICARE, BC, SELFPAY ==
[2025-01-05 10:52] LABS: Hematocrit 42.2 % (37.0-47.0); Hemoglobin 13.3 g/dL (12.0-16.0); Mean Corp Hgb Conc. 31.5 g/dL (33.0-37.0); Mean Corpuscular Hgb 27.7 pg (27.0-31.0); Mean Corpuscular Volume 87.7 fL (81.0-99.0); Mean Platelet Volume 10.5 fL (7.4-10.4); Platelet Count 320 10^3/uL (130-400); Red Blood Cell Count 4.81 10^6/uL (4.20-5.40); Red Cell Dist. Width 13.9 % (11.5-14.5); White Blood Cell Count 9.4 10^3/uL (4.8-10.8)
[2025-01-05 11:18] LABS: ALT (SGPT) 11 U/L (0-35); AST (SGOT) 20 U/L (14-36); Albumin 3.4 g/dl (3.5-5.0); Alkaline Phosphatase 57 U/L (38-126); Blood Urea Nitrogen 36 mg/dl (7-17); Carbon Dioxide 23 mmol/L (22-30); Chloride 107 mmol/L (98-107); Glucose 132 mg/dl (70-99); Potassium 3.8 mmol/L (3.5-5.1); Sodium 136 mmol/L (135-145); Total Bilirubin 0.3 mg/dl (0.2-1.3); Total Protein 5.7 g/dl (6.3-8.2); eGFR 48.63
[2025-01-05 11:32] LABS: Vitamin D, 25-OH*** 70.9 ng/mL (30-80)
[2025-01-05 12:06] LABS: Vitamin B12 > 1000 pg/ml (239-931)
== END ==
LOC: OLABMERCHI 09:36
PROVIDERS: ATTENDING PHYSICIAN Hospitalist
DX: N18.9 Chronic kidney disease, unspecified (principal); M62.81 Muscle weakness (generalized); E55.9 Vitamin D deficiency, unspecified; D64.9 Anemia, unspecified; Z79.899 Other long term (current) drug therapy
CPT/HCPCS: 36415; 80053; 82306; 82607; 85027

== ENCOUNTER 2025-04-08 03:52 | Inpatient (IN) | payer MEDICARE, BC, SELFPAY ==
[2025-04-07 18:10] VITALS: BP 130/87
[2025-04-07 18:34] LABS: Hematocrit 44.0 % (37.0-47.0); Hemoglobin 14.3 g/dL (12.0-16.0); Mean Corp Hgb Conc. 32.5 g/dL (33.0-37.0); Mean Corpuscular Volume 87.0 fL (81.0-99.0); Nucleated Red Blood Cells % 0 %; Platelet Count 425 10^3/uL (130-400); Red Cell Dist. Width 14.6 % (11.5-14.5)
[2025-04-07 18:51] LABS: ALT (SGPT) 16 U/L (0-35); AST (SGOT) 22 U/L (14-36); Albumin 4.4 g/dl (3.5-5.0); Alkaline Phosphatase 70 U/L (38-126); Blood Urea Nitrogen 30 mg/dl (7-17); Calcium 10.7 mg/dl (8.4-10.2); Carbon Dioxide 25 mmol/L (22-30); Chloride 103 mmol/L (98-107); Glucose 137 mg/dl (70-99); Lipase 189 U/L (23-300); Potassium 5.0 mmol/L (3.5-5.1); Sodium 134 mmol/L (135-145); Total Protein 6.9 g/dl (6.3-8.2); eGFR 43.81
[2025-04-07 20:51] VITALS: BMI 17.7
[2025-04-07 20:55] VITALS: BP 118/72
--- NOTE | 2025-04-07 20:58 | EDRN ---
Pt resides at [facility]. Pt complains of dull pain in her abdomen that has been going on for 1-2 months. Pt with decreased appetite. Family thought pt was forgetting to eat so snacks placed in her room. Things were going well until this past
week. Pt did not want to get out of bed on Thursday an had not been eating snacks. Today, pt did not eat but has been going to the bathroom. Pt had CT of abd Oct 04 and family said they were told there 'Might be some problems' and family
decided not to pursue further diagnostic treatments. Pt denies nausea. Family said pt gagged in waiting room, no vomiting. No fever/chills/cough.
[2025-04-07 22:55] VITALS: BP 118/71
[2025-04-08] VITALS (7 sets, daily range): BP systolic 113–153; BP diastolic 66–92; BMI 19.3
--- NOTE | 2025-04-08 00:09 | ED.GENMED ---
Addendum entered and electronically signed by Ap Matamoros DO 04/08/25 01:58:
Multiple attempts to pass NG tube and unable to get to adequate depth. On x-ray there is a curvature suggesting distortion of normal esophageal anatomy. Held at the 50 isidro with only minimal drainage. Patient without any vomiting. Will hold
there for now and continue to monitor
Original Note:
History of Present Illness
General
Chief Complaint: Abdominal Symptoms
Source: patient and family
Time Seen by Provider: 04/07/25 20:56
History of Present Illness
History of Present Illness:
Note:
CHIEF COMPLAINT(S)
Abdominal pain and bloating.
HISTORY OF PRESENT ILLNESS
The patient is an 89-year-old female with a history of anemia who presented with complaints of abdominal pain and bloating. The pain has been persistent for at least one month and has recently worsened. She describes the pain as diffuse, with the
most significant discomfort in the right lower quadrant. The patient reported feeling extremely fatigued and has experienced difficulty getting out of bed. There are concerns from family members about her eating habits, as she has not been eating
regularly over the past few days. She has a history of memory impairments, complicating her ability to report dietary intake and other symptoms accurately. The patient underwent a computed tomography (CT) scan in September following hospitalization
for anemia requiring blood transfusions, but no recent colonoscopy was performed due to concerns about the procedures strain on her health.
ADDITIONAL HISTORY OBTAINED FROM SOURCES OTHER THAN THE PATIENT
Per the patients brother, she has been experiencing increased fatigue and reduced appetite. Family members frequently check on her to ensure she is eating properly, given her memory issues.
EXTERNAL RECORDS REVIEWED
In September, the patient was admitted for anemia management, during which a CT scan was conducted. Further details of the results from September have not been reviewed yet, but they will be considered as part of the current diagnostic workup.
SOCIAL DETERMINANTS AFFECTING HEALTH
The patient resides in a personal care facility and sometimes forgets to eat and perform daily activities due to memory issues, which affects her overall health management.
PHYSICAL EXAM
General: Alert, no acute distress.
Skin: Warm, dry. Appears slightly mottled.
Head: Normocephalic, atraumatic.
Neck: Supple, trachea midline.
Eye, Ears, Nose, and Mouth: Oral mucosa moist.
Cardiovascular: Regular heart rate and rhythm, without murmurs. No edema in extremities.
Respiratory: Lungs are clear to auscultation bilaterally.
Gastrointestinal: Abdomen is distended with diffuse tenderness, significantly in the right lower quadrant. Hypoactive bowel sounds.
Back: Normal range of motion, no deformities.
Musculoskeletal: Normal range of motion, normal strength.
Neurological: Alert and oriented to person, place, time, and situation. No focal neurological deficits.
Psychiatric: Cooperative, appropriate mood and affect.
PROBLEM LIST
Acute:
1. Abdominal pain and bloating.
2. Fatigue and possible anorexia.
PLAN
1. Obtain a CT scan of the abdomen for diagnostic evaluation and comparison with previous imaging.
2. Review blood work results to assess current health status.
3. Monitor nutritional intake and reinforce the importance of regular meals, considering her memory limitations.
DIFFERENTIAL DIAGNOSIS
The Differential Diagnosis includes, in no particular order and is not limited to:
1. Bowel obstruction
2. Appendicitis
3. Colitis
4. Gastroenteritis
5. Diverticulitis
6. Peptic ulcer disease
7. Pancreatitis
8. Cholecystitis
9. Mesenteric ischemia
10. Ovarian pathology
CARE-UPDATE
04/07/25 - 22:43
Reviewed September 2024 safety skin report indicating abnormal concentric mural thickening of the proximal ascending colon, raising suspicion for malignancy. Noted abnormal wall thickening in the fundus of the stomach, differential includes
inflammatory process or malignancy. Recommended colonoscopy and endoscopy remain pertinent to evaluate these findings further.
EKG
My independent EKG interpretation is:
- Time of EKG: Not specified
- Rhythm: Sinus tachycardia
- Heart Rate: 115 bpm
- [place]: Normal
- Notable intervals: Not specified
- Abnormalities: Presence of Q-wave noted in lead III
- Additional observations: No acute ST segment changes noted
Disposition:
SUMMARY OF ENCOUNTER
An 89-year-old female presented with abdominal pain and bloating. A previous CT scan from September indicated a concerning mass. At the time, surgical intervention was not pursued by the family. Today, the patient reports persistent abdominal pain
without vomiting. A current CT scan suggests a small bowel obstruction, which may be related to a past hernia repair. The primary concern is the obstruction, though there is also concern about a right colonic mass. Discussions with radiology
confirmed these findings.
DISPOSITION
Admit to the hospital for further management of small bowel obstruction.
ASSESSMENT
Small bowel obstruction possibly related to previous hysterectomy, with concerns about a right colonic mass.
MANAGEMENT OF THE PATIENTS CARE WAS DISCUSSED WITH
Case discussed with hospitalists and radiologists to determine appropriate steps for management, including potential decompression.
INDEPENDENT REVIEW OF LABS AND INTERPRETATION OF TESTS
- My independent review of CBC is leukocytosis with a white blood cell count of 11,000 and normal hemoglobin.
- My independent review of chemistry panel shows blood glucose of 137 mg/dL and normal liver function tests.
- My independent interpretation of CT scan is the presence of a small bowel obstruction and concerns about a right colonic mass.
MEDICAL DECISION MAKING
- Number and Complexity of Problems Addressed: Chronic conditions affecting care [anemia, history of memory impairments].
- Complexity of Data Reviewed: Differential diagnoses include bowel obstruction, appendicitis, colitis, gastroenteritis, diverticulitis, peptic ulcer disease, pancreatitis, cholecystitis, mesenteric ischemia, and ovarian pathology.
- Data:
- Category 1: I reviewed the patients previous CT scan from September indicating a potential mass.
- Category 2: Clinical information was obtained from an independent historian, the patients family, providing additional context regarding prior decisions.
- My independent interpretation of CT scan supports the current diagnosis of small bowel obstruction.
- Risk: Admission was necessary due to the small bowel obstruction and potential complications requiring hospital-based care.
DIAGNOSIS
1. Small bowel obstruction (ICD-10 K56.609)
2. 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
Past History
Past History
ED Past Medical History: Renal failure (CKD), Psychiatric (dementia) and Other (anemia)
Phy Exam
Physical Exam
Physical Exam:
.
Course
Orders/Labs/Results
Orders:
Orders
04/07/25 18:12
Electrocardiogram (*1) Urgent
Reason for Study: Fatigue / Weakness
EKG- Treatment ONCE
04/07/25 18:21
Complete Blood Count/With Diff Urgent
Comprehensive Metabolic Panel Urgent
Lipase Urgent
04/07/25 22:41
CT Abd/pelvis W Iv Cont Urgent
Comment:
Reason For Exam: lower abd pain
04/08/25 00:18
NG Tube [GI tube insertion- Treatment] ONCE
0.9% Sodium Chloride 500 ml [Nss] 500 ml IV BOLUS
Abnormal Lab Results
04/07/25
18:21
WBC 11.9 H 10^3/uL
(4.8-10.8)
MCHC 32.5 L g/dL
(33.0-37.0)
RDW 14.6 H %
(11.5-14.5)
Plt Count 425 H 10^3/uL
(130-400)
Absolute Neuts (auto) 9.6 H 10^3/uL
(1.4-6.5)
Absolute Monos (auto) 0.9 H 10^3/uL
(0.1-0.6)
Neutrophils % 80.9 H %
(42.2-75.2)
Lymphocytes % 10.7 L %
(20.5-51.1)
Sodium 134 L mmol/L
(135-145)
BUN 30 H mg/dl
(7-17)
Creatinine 1.2 H mg/dL
(0.6-1.0)
Glucose 137 H mg/dl
(70-99)
Calcium 10.7 H mg/dl
(8.4-10.2)
04/07/25 18:21
04/07/25 18:21
Vital Signs
Initial and Last Documented VS:
Initial Vital Signs
Temp Pulse Resp BP Pulse Ox
98.6 F 115 16 130/87 98
04/07/25 18:10 04/07/25 18:10 04/07/25 18:10 04/07/25 18:10 04/07/25 18:10
Last Documented Vital Signs
Temp Pulse Resp BP Pulse Ox
98.2 F 95 14 118/71 96
04/07/25 20:55 04/07/25 22:55 04/07/25 22:55 04/07/25 22:55 04/08/25 00:13
*Pulse Oximetry
SaO2: 96
Oxygen Mode of Delivery: Room air
Patient hypoxic: no
*Critical Care Note
Total Time (30-74mins, 75-104mins- exclusive of procedures): Not Applicable
ED Attending Note
-
Portions of this chart may have been created with voice recognition software.� Occasional wrong word or��sound alike� substitutions may have occurred due to the inherent limitations of voice recognition software.
Discharge Plan
Departure
Patient Disposition: Admit
Date of Disposition: 04/08/25
Time of Disposition: 00:12
Admit to: Med/Surg
Presentation/result/management discussed w/ accepting MD/DO: Hospitalist
Discharge Problem:
SBO (small bowel obstruction), Colonic mass
Prescriptions:
No Action
acetaminophen [Tylenol] 325 mg Tablet
650 mg PO Q6HPRN PRN (Reason: mild pain)
cholecalciferol (vitamin D3) [Vitamin D3] 50 mcg (2,000 unit) Capsule
50 mcg PO DAILY
L-Methylfolate Forte 7.5-90.314 mg Capsule
1 cap PO DAILY
cyanocobalamin (vitamin B-12) 1,000 mcg Tablet
1,000 mcg PO DAILY Qty: 30 0RF
ferrous sulfate 325 mg (65 mg iron) tablet
325 mg PO DAILY Qty: 30 0RF
Referrals:
Huyen Simon DO [Family Provider, General]
Interventions
Interventions:
*Risk Screen - Suicide Last Done: 04/07/25 18:10
*General Assessment Last Done: 04/07/25 20:52
*Neglect/Abuse Screening Last Done: 04/07/25 18:10
*ED- Fall Risk Assessment Last Done: 04/07/25 21:03
SH-Prmirl-Eaaxxopyno Assessment Last Done: 04/07/25 21:07
Discharge Date and Time
Print Language: [place]
[2025-04-08] MEDS: NSS 500 IV (00:26)
--- NOTE | 2025-04-08 01:13 | EDRN ---
Per Dr Matamoros, attempted to insert NGT further however the tube curled in pt's mouth - tube removed, will insert larger ngt
--- NOTE | 2025-04-08 02:00 | EDRN ---
Resident attempted NGT insertion with #14 FR R nare and L nare without success. Dr Matamoros informed and attempted NGT insertion L nare - area numbed by Dr Matamoros with urojet. Multiple attempts to pass ngt by Dr Matamoros - unable to insert ngt fully
as it kept curling in pt's mouth. Dr Matamoros asked that NGT remain where it is since there is a little bit of liquid being removed.
--- NOTE | 2025-04-08 02:07 | HPS.HSE ---
Family Physician
-
Family Physician: Huyen Simon DO
Chief Complaint
-
Abdominal pain and bloating
History of Present Illness
Patient is a 89-year-old female with past medical history of anemia and no known prior surgery presents to the emergency department with complaints of abdominal pain and bloating.
She reports onset of symptoms 1 month ago and describes diffuse pain mostly in the right lower quadrant. By time I saw the patient she describes pain in more epigastric region. There has been decreased oral intake and family is concerned with the
change in eating habits. She has some memory impairment but takes medications by itself and was able to tell me that she is really only on vitamins. She had a CT scan in September for anemia but has had no recent colonoscopy due to concern that
procedures will put some undue strain. She is found to have a small bowel obstruction in the ED. No urinary symptoms.
She was afebrile, blood pressure was 140/90 with a pulse rate of 100 and she was satting 92% on room air.
ECG shows sinus tachycardia at 110.
CBC shows a white count of 11.9 but otherwise unremarkable. Electrolytes were stable with BUN/creatinine of 30 and 1.2 which is unchanged from prior. Glucose was normal. LFTs unremarkable. Lipase was normal.
CT of the abdomen and pelvis showed small fluid-filled and dilated small bowel loops measuring up to 3.8 cm, there is distal small bowel loops which are decompressed suggesting small bowel obstruction. There is no visualized mass or specific source
of obstruction which is likely distal small bowel and in the pelvis possibly due to additional.
There may be a mass in the cecal region, it is difficult to tell if this masslike area originates from the cecum or small bowel with it is a possible source of obstruction. However distal decompressed loops of bowel is not consistent with cecal
obstruction. consider repeating imaging after bowel decompression.
Medical History
Past Medical History
Past Medical History: Reports Other
Additional Past Medical History:
CKD
Past Surgical History: Reports None
Social History
Tobacco: Non-smoker
Alcohol: None
Family History
Family History: Not pertinent
Allergies / Home Medications
Allergies reflects when Allergies were last updated in [facility].
Home Medications with original date entered in [facility]
Allergy/Medication List:
Allergies
Allergy/AdvReac Type Severity Reaction Status Date / Time
No Known Allergies Allergy Unverified 09/01/24 19:20
Home Medications
L-Methyfola 7.5 mg PO DAILY 09/02/24
Tylenol 650 mg PO Q6H PRN pain 09/02/24
Vitamin D3 50 mcg PO DAILY 09/02/24
Review of Systems
-
History Source: Patient
A 12 point ROS was completed and negative except as noted: Yes
Constitutional: Reports Fatigue; Denies Fever or Chills
Respiratory: Denies Cough or Trouble Breathing
Cardiac: Denies Chest Pain or Palpitations
Abdomen/GI: Reports Abdominal Pain and Nausea; Denies Vomiting, Diarrhea, Bloody Stools or Black Stools
: Denies Dysuria, Frequency or Bleeding
Musculoskeletal: Denies Joint Pain or Edema
Neurological: Denies Dizzy or Headache
Psych: Denies Depression or Anxiety
Physical Exam
Vital Signs
Vital Signs
Temp Pulse Resp BP Pulse Ox
98.2 F 100 16 142/92 97
04/07/25 20:55 04/08/25 00:55 04/08/25 00:55 04/08/25 00:55 04/08/25 00:55
Physical Exam
General: Other (89y F pale-appearing and in no acute distress.)
HEENT: Moist mucous membranes and PERRLA
Respiratory: Clear; No Wheezes, Rales or Rhonchi
Cardiac: S1/S2 and Regular Rhythm; No Murmur
GI: Soft, Non Distended, Normal Bowel Sounds and Other (NG tube to suction )
Rectal: Deferred by Provider
Genito-urinary: Deferred by me
Musculoskeletal: No Clubbing, No Cyanosis and No Edema
Neuro: Awake, Alert, Oriented (oriented to person, place and year) and Nonfocal/grossly intact
Hematologic/Lymphatic: No Lymphadenopathy
Psych: Calm
Laboratory Results
-
04/07/25 18:21
04/07/25 18:21
Laboratory Results
Total Bilirubin 0.5 mg/dl (0.2-1.3) 04/07/25 18:21
AST 22 U/L (14-36) 04/07/25 18:21
ALT 16 U/L (0-35) 04/07/25 18:21
Alkaline Phosphatase 70 U/L (38-126) 04/07/25 18:21
Lipase 189 U/L (23-300) 04/07/25 18:21
Data Reviewed
-
CT Scan: Report Reviewed by me
Medical Tests (Nuc Med, Echo, EKG etc): Image Personally Visualized and interpreted
Lab Data: Labs Reviewed by me
Old Records: Reviewed
Impression/Plan
-
IMPRESSION:
89 y.o female with history of anemia presenting to ED with abdominal bloating and discomfort and found to have a small bowel obstruction. CT scan suggestive of possible cecal mass vs adhesion but the degree of dilation of bowel loops prevents
further characterization. She is s/p NG tube and reports improvement in symptoms. However NG tube positioning is non-ideal but patient does not want to undergo repositioning due to discomfort.
PLAN:
SBO - On the basis of adhesion vs cecal mass
- admit to med/surg
- continue NG tube decompression
- NPO for now
- maintenance fluids with d5 NS
- pain control and antiemetics
- surgical consult.
DVT PPX - heparin sq
Code status - Full Code
--- NOTE | 2025-04-08 04:26 | EDRN ---
Called and spoke with pt's nurse upstairs and informed about NGT insertion difficulties and that Dr Matamoros ordered it taped at 50
--- NOTE | 2025-04-08 04:48 | EDRN ---
800ml brown liquid emptied from ngt suction canister
--- NOTE | 2025-04-08 05:10 | PTCARENOTE ---
Pt received from ED via stretcher at 0500. Pt pleasant, AAOx3, VSS, and able to ambulate into room with assistance. Pt complains of mild (4/10) pain and discomfort in throat from NGT. Pt receptive to room and call johnson. Pt bed in lowest position and
call johnson within reach. Pt educated on importance of call johnson usage, pt relays somewhat understanding and cooperation. Pt with history of dementia; bed alarm placed and plugged in. Will continue with current plan of care.
[2025-04-08] MEDS: D5/0.9% SODIUM CHLORIDE 1000 IV ×2 (05:41→22:03)
[2025-04-08 06:43] LABS: Hematocrit 42.1 % (37.0-47.0); Hemoglobin 13.3 g/dL (12.0-16.0); Mean Corp Hgb Conc. 31.6 g/dL (33.0-37.0); Mean Corpuscular Volume 87.7 fL (81.0-99.0); Platelet Count 402 10^3/uL (130-400); Red Cell Dist. Width 14.6 % (11.5-14.5)
[2025-04-08 07:12] LABS: Blood Urea Nitrogen 29 mg/dl (7-17); Calcium 10.3 mg/dl (8.4-10.2); Carbon Dioxide 28 mmol/L (22-30); Chloride 101 mmol/L (98-107); Estimated Creatinine Clearance 21 ml/min; Glucose 120 mg/dl (70-99); Potassium 4.9 mmol/L (3.5-5.1); Sodium 137 mmol/L (135-145); eGFR 39.80
[2025-04-08] MEDS: HEPARIN 5000 UNITS SC ×3 (08:11→23:37)
[2025-04-08 09:11] LABS: CEA 3.04 ng/ml
--- NOTE | 2025-04-08 11:47 | CON.GS ---
Addendum entered and electronically signed by Angel Lloyd MD 04/08/25 13:47:
Patient seen and examined.
Patient is a 89 yo F with a PMH of dementia, iron deficiency anemia, CKD, s/p RIGHT TKR, and s/p hernia repair? Who presented to the ED from her nursing facility with abdominal pain and bloating. History is limited due to patient's dementia.
Family reports that she has had intermittent issues with oral intake over the past several months. She previously had issues with a bowel obstruction back in September 2024. Report that over the past week she has had worsening oral intake and
abdominal discomfort prompting presentation to the ED.
Gen: NAD
HEENT: NGT with clear output
Abd: soft, NT, distended, tympanitic, non-peritoneal
Labs and CT scan were reviewed.
Patient is an 89 yo F p/w SBO likely secondary to a mass, possibly adhesions
Brother (Ruben) was updated and a discussion was had with him and his . The natural history and pathophysiology of bowel obstructions was discussed. Options for management including medical management with bowel rest versus surgical
management were considered and discussed. She is at increased risk for operative complications given her age, general medical condition, and underlying dementia. She is showing some signs of clinical improvement with a recent bowel movement. That
being said, given the concern for a colonic mass this issue was unlikely to be completely resolved in the future. Recommend continue medical management at this time. Pending improvement would recommend repeat CT scan with oral contrast. Family to
consider options and goals of care to help better determine future steps. All questions answered.
-- NPO, IVF, NGT decompression
-- Repeat CT scan with PO contrast possibly tomorrow after period of bowel rest and with NGT in place
-- CEA, Ca 19-9
-- Goals of care discussion on going
Original Note:
Consultation
-
Date/Time Consultation Performed: 04/08/25 1045
Medical History
-
Chief Complaint: abdominal pain
History of Present Illness:
89 yo female with a h/o CKD and iron deficiency anemia and dementia with ?prior hernia repair (noted on OP record) who presented through the ED from her facility with abdominal pain and bloating yesterday. She was recently admitted in August with
symptomatic anemia with outpatient work up recommended, but it does not appear that she underwent colonoscopy or EGD. CT imaging at that time with thickening noted during the cecum. She is pleasantly confused and able to offer some history but not
very specific details. She complained of right lower quadrant pain on presentation with decreased oral intake noted over the last few days with noted intermittent complaints of pain reported for about one month. An NGT was placed in the ED which is
draining bilious outputs. She currently denies pain or nausea. Per nursing, did pass a large black BM this am. On exam, there is no tenderness present with mild distention noted.
Past Medical History
Past Medical History: Other (dementia, CKD)
Past Surgical History: Hernia Repair (?hernia repair) and Orthopedic (right TKR)
Social History
Tobacco: Non-Smoker
Alcohol: None
Living: [facility]
Family History
Family History: Unable to Obtain
Allergies / Home Medications
Allergy/AdvReac Type Severity Reaction Status Date / Time
No Known Allergies Allergy Verified 04/07/25 18:12
�Medication �Instructions �Recorded �Confirmed �Type
acetaminophen 325 mg tablet 650 mg PO Q6HPRN PRN mild pain 09/02/24 04/07/25 History
(Tylenol)
cholecalciferol (vitamin D3) 50 50 mcg PO DAILY Supplement 09/02/24 04/07/25 History
mcg (2,000 unit) capsule (Vitamin
D3)
cyanocobalamin (vitamin B-12) 1,000 mcg PO DAILY #30 tabs 09/02/24 04/07/25 Rx
1,000 mcg tablet
ferrous sulfate 325 mg (65 mg 325 mg PO DAILY #30 tabs 09/02/24 04/07/25 Rx
iron) tablet
levomefolate 7.5 mg-algal oil 1 cap PO DAILY Supplement 09/02/24 04/07/25 History
90.314 mg capsule (L-Methylfolate
Forte)
Review of Systems
-
Unable to obtain full review of systems at this time due to: Dementia
History Source: Patient, [facility] and Coordinating Provider
All other systems: Negative unless noted
A 10 point review of systems was completed, and was negative except as per HPI.
Physical Exam
Vital Signs
Temp Pulse Resp BP Pulse Ox
99.0 F 100 18 141/87 95
04/08/25 07:25 04/08/25 07:25 04/08/25 07:25 04/08/25 07:25 04/08/25 07:25
04/07/25 04/08/25 04/09/25
06:59 06:59 06:59
Actual Weight 43.346 kg
Body Mass Index (BMI) 19.3
Lab Results
04/08/25 06:08
04/08/25 06:08
WBC 15.1 10^3/uL (4.8-10.8) H 04/08/25 06:08
Hgb 13.3 g/dL (12.0-16.0) 04/08/25 06:08
Hct 42.1 % (37.0-47.0) 04/08/25 06:08
Plt Count 402 10^3/uL (130-400) H 04/08/25 06:08
Abs Immat Gran (auto) 0.0 10^3/uL (0-0.05) 04/07/25 18:21
Neutrophils % 80.9 % (42.2-75.2) H 04/07/25 18:21
Physical Exam
General: Well Developed
HEENT: Moist Mucous Membranes
Respiratory: Non Labored Respirations
GI: Soft, Non Tender, Distended (mild) and Other (NGT with bilious outputs)
Skin: Warm and Dry
Neuro: Awake; Negative Oriented
Psych: Calm
Data Reviewed
-
CT Scan: Image Personally Visualized and interpreted, Report Reviewed by me, Discussed with Physician and Discussed with Patient
Labs: Labs Reviewed by me, Discussed with Physician and Discussed with Patient
Old Records: Reviewed
Assessment / Plan
-
89 yo female with h/o dementia and iron deficiency anemia presenting with bloating, poor po intake and abdominal pain. Recent admit earlier this year with abnormal thickening of the proximal colon and fundus of the stomach. CT imaging reviewed from
this presentation with concern for cecal mass which coincides with the area where thickening was previously noted with resultant partial small bowel obstruction which is likely malignant. (limited d/t lack of PO contrast). Exam and history limited
d/t dementia. She has had symptomatic relief with NGT decompression and was able to pass a large black BM this afternoon per nursing staff. Afebrile. Stable vital signs. Leukocytosis present and likely secondary to obstruction. CEA borderline, CA
19-9 pending.
Plan:
C/W NGT to [facility], NPO except ice chips
NGT in esophagus on XR, will repeat imaging to check placement after repositioned
IVF and analgesics as per primary team
Will need to discuss goals of care with family as she would likely require eventual surgery to relieve this obstruction. Further surgical recs pending d/w family
--- NOTE | 2025-04-08 12:45 | W.PN.HOSP.TC ---
Today's Communication/Plan
-
monitor vitals
see plan
surgery following
NGT
pain control
NPO
Assessment / Plan
Assessment / Plan
General: in no acute distress
HEENT: Moist mucous membranes and PERRLA
Respiratory: Clear; No Wheezes, Rales or Rhonchi
Cardiac: S1/S2 and Regular Rhythm; No Murmur
GI: Soft, Non Distended, Normal Bowel Sounds and Other (NG tube to suction )
Musculoskeletal:No Edema
Neuro: Awake, Alert, Oriented (oriented to person, place and year) and Nonfocal/grossly intact
Psych: Calm
SBO - On the basis of adhesion vs cecal mass
- continue NG tube decompression
- NPO for now
- maintenance fluids with d5 NS
- pain control and antiemetics
- surgery following
CA19-9 pending
Hypercalcemia
Monitor
Suspect CKD 3b
monitor renal function
Dementia, known type
DVT PPX - heparin sq
Code status - Full Code
Anticipated Discharge: > 48 hours
Subjective/Interval History
-
Date of Service: April 08, 2025
denies nausea
Objective Data
-
Labs:
Laboratory Results
04/08/25
06:08
WBC 15.1 H
Hgb 13.3
Hct 42.1
Plt Count 402 H
Sodium 137
Potassium 4.9
Chloride 101
Carbon Dioxide 28
BUN 29 H
Creatinine 1.3 H
Glucose 120 H
Calcium 10.3 H
Vital Signs:
Vital Signs
Temp Pulse Resp BP Pulse Ox
99.0 F 100 18 141/87 95
04/08/25 07:25 04/08/25 07:25 04/08/25 07:25 04/08/25 07:25 04/08/25 07:25
I&O
04/07/25 04/08/25 04/09/25
06:59 06:59 06:59
Output Total 800 / 800
Balance -800 / -800
--- NOTE | 2025-04-08 14:40 | CM ---
CM reviewed chart, patient seen bedside, initial assessment completed. The patient is an 89-year-old female with a history of anemia who presented with complaints of abdominal pain and bloating.
Patient resides at [facility]. CM placed call to [facility] ([phone]) to obtain patients PLOF, left VM for nurse with request for return call. Patient seen with NG tube, surgery following. Patient PCP Huyen Simon, Pharm[facility] in [place]. CM will continue to follow for all discharge planning needs.
Plan; TBD, ongoing GOC discussions, likely return to [facility]
[2025-04-08] MEDS: DILAUDID 0.5 MG IV (15:14)
--- NOTE | 2025-04-08 16:10 | PTCARENOTE ---
NGT advanced 5 cm per provider s/p chest xray. NGT now measuring at 55 cm. NG tape changed and dated.
[2025-04-08] MEDS: ZOFRAN 4 MG IV (16:13)
--- NOTE | 2025-04-08 16:17 | PTCARENOTE ---
post advancing of NG tube, patient became nauseous. prn IV zofran administered for relief.
[2025-04-09 07:33] VITALS: BP 108/64
[2025-04-09 07:55] LABS: Hematocrit 36.1 % (37.0-47.0); Hemoglobin 11.2 g/dL (12.0-16.0); Mean Corp Hgb Conc. 31.0 g/dL (33.0-37.0); Mean Corpuscular Volume 89.8 fL (81.0-99.0); Nucleated Red Blood Cells % 0 %; Platelet Count 300 10^3/uL (130-400); Red Cell Dist. Width 14.5 % (11.5-14.5)
[2025-04-09 08:21] LABS: Blood Urea Nitrogen 18 mg/dl (7-17); Calcium 8.7 mg/dl (8.4-10.2); Carbon Dioxide 27 mmol/L (22-30); Chloride 109 mmol/L (98-107); Estimated Creatinine Clearance 23 ml/min; Glucose 107 mg/dl (70-99); Potassium 4.1 mmol/L (3.5-5.1); Sodium 138 mmol/L (135-145); eGFR 43.81
[2025-04-09] MEDS: HEPARIN 5000 UNITS SC ×3 (08:48→23:16)
[2025-04-09] MEDS: OMNIPAQUE 50 ML PO (08:48)
--- NOTE | 2025-04-09 12:58 | W.PN.HOSP.TC ---
Today's Communication/Plan
-
Monitor vital signs
see plan
Continue with NG tube
N.p.o.
CT abdomen/pelvis
Assessment / Plan
Assessment / Plan
General: in no acute distress
HEENT: Moist mucous membranes and PERRLA
Respiratory: Clear; No Wheezes, Rales or Rhonchi
Cardiac: S1/S2 and Regular Rhythm; No Murmur
GI: Soft, Non Distended, Normal Bowel Sounds and Other (NG tube to suction )
Musculoskeletal:No Edema
Neuro: Awake, Alert, Oriented (oriented to person, place and year) and Nonfocal/grossly intact
Psych: Calm
SBO - On the basis of adhesion vs cecal mass
- continue NG tube decompression
- NPO for now
- maintenance fluids with d5 NS
- pain control and antiemetics
- surgery following
CA19-[address] abdomen/pelvis pending
Hypercalcemia
Monitor
Suspect CKD 3b
monitor renal function
Dementia, known type
DVT PPX - heparin sq
Code status - Full Code
Anticipated Discharge: 24 - 48 hours
Subjective/Interval History
-
Date of Service: April 09, 2025
Denies nausea
Objective Data
-
Labs:
Laboratory Results
04/09/25 04/09/25
07:15 07:16
WBC 9.9
Hgb 11.2 L
Hct 36.1 L
Plt Count 300 D
Sodium 138
Potassium 4.1
Chloride 109 H
Carbon Dioxide 27
BUN 18 H
Creatinine 1.2 H
Glucose 107 H
Calcium 8.7 D
Vital Signs:
Vital Signs
Temp Pulse Resp BP Pulse Ox
98.7 F 80 16 108/64 95
04/09/25 07:33 04/09/25 07:33 04/09/25 07:33 04/09/25 07:33 04/09/25 07:33
I&O
04/08/25 04/09/25 04/10/25
06:59 06:59 06:59
Intake Total 720 / 720
Output Total 800 / 800 175 / 175
Balance -800 / -800 545 / 545
--- NOTE | 2025-04-09 13:11 | W.PN.GS2 ---
Today's Communication / Plan
-
-- Repeat X-ray abdomen
-- Possible DC NGT and trial of clear pending above
Assessment / Plan
-
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
AVSS
Labs notable for normalized WBC, mild drift in Hb, normalization of platelets, slightly improved CKD and creatinine
Clinical improvement bowel obstruction with passage of stool and improvement in abdominal exam. Repeat CT scan with oral contrast demonstrates improvement in SBO with contrast making its way to the cecum. CT scan imaging again confirms concern for
possible mass at the cecum. No recent colonoscopy. In-depth discussion with patient's DPOA (brothemilio Miranda) regarding goals of care. Yet to be fully defined as to if they would want to proceed with surgical intervention. Of note brother Ruben
Princess has a close relationship with Dr. Castro and requesting his opinion. In the interim we will proceed with medical management. Repeat abdominal x-ray ordered for this afternoon with expectation to D/C NGT and trial clears later today.
-- Repeat X-ray abdomen
-- Possible DC NGT and trial of clear pending above
Subjective Data
-
Date of Service: April 09, 2025
No complaints. No reports of further stools from nursing. No nausea or vomiting. Afebrile.
Objective Data
-
Intake and Output
04/08/25 04/09/25 04/10/25
06:59 06:59 06:59
Intake Total 720 / 720
Output Total 800 / 800 175 / 175
Balance -800 / -800 545 / 545
Intake:
IV fluids (Total) 720 / 720
Output:
Gastrointestinal tube output ( 800 / 800 175 / 175
Total)
[place] Sump 175 / 175
Other:
Number of approximated MODERATE 1
amounts of urine
Vital Signs
Temp Pulse Resp BP Pulse Ox
98.7 F 80 16 108/64 95
04/09/25 07:33 04/09/25 07:33 04/09/25 07:33 04/09/25 07:33 04/09/25 07:33
Lab Results
04/09/25 07:16
04/09/25 07:15
Calcium 8.7 mg/dl (8.4-10.2) D 04/09/25 07:15
Total Bilirubin 0.5 mg/dl (0.2-1.3) 04/07/25 18:21
AST 22 U/L (14-36) 04/07/25 18:21
ALT 16 U/L (0-35) 04/07/25 18:21
Alkaline Phosphatase 70 U/L (38-126) 04/07/25 18:21
Total Protein 6.9 g/dl (6.3-8.2) 04/07/25 18:21
Albumin 4.4 g/dl (3.5-5.0) 04/07/25 18:21
Physical Exam
-
Gen: NAD
HEENT: NGT clear output
Abd: soft, NT/ND, non-peritoneal
--- NOTE | 2025-04-09 13:37 | W.PN.UPDATE ---
Update Note
Progress Note Update
Brother Ruben Sánchez with poor cell phone service. Best contacted at home number:
[2025-04-09 15:00] VITALS: BP 133/81
[2025-04-09 23:39] VITALS: BP 94/58
[2025-04-10 07:50] VITALS: BP 117/66
[2025-04-10 08:05] LABS: Hematocrit 35.1 % (37.0-47.0); Hemoglobin 10.8 g/dL (12.0-16.0); Mean Corp Hgb Conc. 30.8 g/dL (33.0-37.0); Mean Corpuscular Volume 91.4 fL (81.0-99.0); Nucleated Red Blood Cells % 0 %; Platelet Count 281 10^3/uL (130-400); Red Cell Dist. Width 14.3 % (11.5-14.5)
[2025-04-10] MEDS: HEPARIN 5000 UNITS SC ×3 (08:42→23:08)
[2025-04-10 08:44] LABS: Blood Urea Nitrogen 18 mg/dl (7-17); Calcium 9.3 mg/dl (8.4-10.2); Carbon Dioxide 26 mmol/L (22-30); Chloride 108 mmol/L (98-107); Estimated Creatinine Clearance 23 ml/min; Glucose 73 mg/dl (70-99); Potassium 4.3 mmol/L (3.5-5.1); Sodium 138 mmol/L (135-145); eGFR 43.81
[2025-04-10 09:59] VITALS: BP 131/66; PULSE 69; O2SAT 97
--- NOTE | 2025-04-10 10:33 | W.PN.GS2 ---
Today's Communication / Plan
-
Tentatively planning OR this admission, unsure of timing, likely later this week.
Okay for clears for now
Assessment / Plan
-
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
AVSS
Labs notable for normalized WBC, mild drift in Hb, normalization of platelets, slightly improved CKD and creatinine
Clinical improvement bowel obstruction with passage of stool and improvement in abdominal exam. Repeat CT scan with oral contrast demonstrates improvement in SBO with contrast making its way to the cecum. CT scan imaging again confirms concern for
possible mass at the cecum. No recent colonoscopy.
Had a lengthy conversation with patient and her medical POA (Ruben) regarding options and goals of care. They are leaning towards surgery as I think this will maintain her quality of life which seems fairly good at baseline. There are slightly
increased risk for worsening of her dementia with anesthesia and the stress of surgery which they are aware of.
Clears
CEA with normal limits, CA 19-9 pending.
Can get a staging CT chest with IV contrast as an outpatient or later this admission
Dr. Castro will be returning tomorrow to discuss with POA and patient regarding options and timing of surgery.
Time Spent
Total Time Spent with Patient (in minutes): 20
Subjective Data
-
Date of Service: April 10, 2025
Interval Events:
No acute events overnight. Slept well. Pain Controlled. Denies Nausea/Vomiting, +bowel function.
Objective Data
-
Intake and Output
04/09/25 04/10/25 04/11/25
06:59 06:59 06:59
Intake Total 720 / 720 60 / 60
Output Total 175 / 175
Balance 545 / 545 60 / 60
Intake:
Oral fluids 60 / 60
IV fluids (Total) 720 / 720
Output:
Gastrointestinal tube output ( 175 / 175
Total)
[place] Sump 175 / 175
Other:
Number of approximated MODERATE 1 2
amounts of urine
Vital Signs
Temp Pulse Resp BP Pulse Ox
98.3 F 73 16 117/66 94
04/10/25 07:50 04/10/25 07:50 04/10/25 07:50 04/10/25 07:50 04/10/25 07:50
Lab Results
04/10/25 05:59
04/10/25 05:59
Calcium 9.3 mg/dl (8.4-10.2) 04/10/25 05:59
Total Bilirubin 0.5 mg/dl (0.2-1.3) 04/07/25 18:21
AST 22 U/L (14-36) 04/07/25 18:21
ALT 16 U/L (0-35) 04/07/25 18:21
Alkaline Phosphatase 70 U/L (38-126) 04/07/25 18:21
Total Protein 6.9 g/dl (6.3-8.2) 04/07/25 18:21
Albumin 4.4 g/dl (3.5-5.0) 04/07/25 18:21
Physical Exam
-
GENERAL/NEURO: Awake, Alert, no distress
CHEST: Unlabored breathing on RA
ABDOMEN: Soft, Non-Tender, mildly distended
Patient has a carter catheter: No
Patient has a central line: No
--- NOTE | 2025-04-10 13:13 | W.PN.HOSP.TC ---
Today's Communication/Plan
-
Monitor vital signs and see plan
Remain on clears
Surgery following
Possible plan for surgery this admission
Assessment / Plan
Assessment / Plan
General: in no acute distress
HEENT: Moist mucous membranes and PERRLA
Respiratory: Clear; No Wheezes, Rales or Rhonchi
Cardiac: S1/S2 and Regular Rhythm; No Murmur
GI: Soft, Non Distended, Normal Bowel Sounds
Musculoskeletal:No Edema
Neuro: Awake, Alert, Oriented (oriented to person, place and year) and Nonfocal/grossly intact
Psych: Calm
SBO - On the basis of adhesion vs cecal mass
resolving however high risk this will happen again given mass
now on clears
Per surgery, plan for intervention this admission
Continue with clears
- maintenance fluids with d5 NS
- pain control and antiemetics
- surgery following
CA19-[address] abdomen/pelvis noted
Hypercalcemia
Monitor; Improved
Suspect CKD 3b
monitor renal function
Dementia, unknown type
DVT PPX - heparin sq
Code status - Full Code
Anticipated Discharge: > 48 hours
Subjective/Interval History
-
Date of Service: April 10, 2025
denies pain
Objective Data
-
Labs:
Laboratory Results
04/10/25
05:59
WBC 7.7
Hgb 10.8 L
Hct 35.1 L
Plt Count 281
Sodium 138
Potassium 4.3
Chloride 108 H
Carbon Dioxide 26
BUN 18 H
Creatinine 1.2 H
Glucose 73
Calcium 9.3
Vital Signs:
Vital Signs
Temp Pulse Resp BP Pulse Ox
98.3 F 73 16 117/66 94
04/10/25 07:50 04/10/25 07:50 04/10/25 07:50 04/10/25 07:50 04/10/25 07:50
I&O
04/09/25 04/10/25 04/11/25
06:59 06:59 06:59
Intake Total 720 / 720
Output Total 175 / 175
Balance 545 / 545
[2025-04-10 15:39] VITALS: BP 106/61
[2025-04-10 22:53] LABS: CA 19-9 13 U/mL (<=35)
[2025-04-10 23:39] VITALS: BP 109/67
[2025-04-11 07:20] VITALS: BP 122/66
[2025-04-11] MEDS: HEPARIN 5000 UNITS SC ×3 (08:08→23:11)
[2025-04-11 08:24] LABS: Hematocrit 36.4 % (37.0-47.0); Hemoglobin 11.5 g/dL (12.0-16.0); Mean Corp Hgb Conc. 31.6 g/dL (33.0-37.0); Mean Corpuscular Volume 89.2 fL (81.0-99.0); Nucleated Red Blood Cells % 0 %; Platelet Count 267 10^3/uL (130-400); Red Cell Dist. Width 13.9 % (11.5-14.5)
--- NOTE | 2025-04-11 09:04 | W.PN.GS2 ---
Addendum entered and electronically signed by Angel Lloyd MD 04/11/25 15:54:
Patient seen and examined.
No nausea or vomiting. No reports of flatus, BM yesterday. Tolerating clears.
Gen: NAD
Abd: soft, NT/ND, non-peritoneal
Patient is an 89 yo F p/w partial SBO likely to an obstructing ileocecal mass.
Options for management have been extensively reviewed. Ultimate recommendation for surgical intervention. Goals of care and desire for surgery pending. Previous discussions with the patient's DPOA (Ruben, who has a history with Dr. Castro)
requesting second opinion and further care.
-- Clears
-- Goals of care and decision on surgery ongoing
Original Note:
Today's Communication / Plan
-
Possible surgical invention, pending evaluation by Dr. Castro
Continue clear liquid diet
Continue antiemetics, pain control as needed
Assessment / Plan
-
Assessment: Patient is an 89-year-old female who presented with SBO likely secondary to malignancy based on mass in cecum/ascending colon identified on CTAP.
AFVSS, no leukocytosis
Benign abdominal exam this morning
Surgical intervention expected based on attending physician's discussion with patient's brother and POA (Ruben) yesterday, pending evaluation by Dr. Castro
CTAP 04/09: Probable cecal/proximal ascending colon mass; improving distal SBO relative to 04/07 CTAP
CEA, CA 19�9 WNL
Plan:
Clear liquid diet for now
Possible surgical intervention, pending evaluation by Dr. Castro
Pain control, antiemetics as needed
Monitor clinical status
Clears
CEA with normal limits, CA 19-9 pending.
Can get a staging CT chest with IV contrast as an outpatient or later this admission
Dr. Castro will be returning tomorrow to discuss with POA and patient regarding options and timing of surgery.
Subjective Data
-
Date of Service: April 11, 2025
Patient is seen at bedside on hospital day #4. Patient reports no pain. Patient reports no flatus. Nursing reports NAEO. Patient had BM yesterday. No current complaints.
Objective Data
-
Intake and Output
04/10/25 04/11/25 04/12/25
06:59 06:59 06:59
Intake Total 1260 / 1260
Balance 60 1260 / 1260
Intake:
Oral fluids 1260 / 1260
Other:
Number of approximated SMALL 1
amounts of urine
Number of approximated MODERATE 2 1
amounts of urine
How many times incontinent 2
SATURATED amount urine
Vital Signs
Temp Pulse Resp BP Pulse Ox
97.2 F 69 16 122/66 97
04/11/25 07:20 04/11/25 07:20 04/11/25 07:20 04/11/25 07:20 04/11/25 07:20
Lab Results
04/11/25 07:45
Calcium 9.3 mg/dl (8.4-10.2) 04/10/25 05:59
Total Bilirubin 0.5 mg/dl (0.2-1.3) 04/07/25 18:21
AST 22 U/L (14-36) 04/07/25 18:21
ALT 16 U/L (0-35) 04/07/25 18:21
Alkaline Phosphatase 70 U/L (38-126) 04/07/25 18:21
Total Protein 6.9 g/dl (6.3-8.2) 04/07/25 18:21
Albumin 4.4 g/dl (3.5-5.0) 04/07/25 18:21
Physical Exam
-
General: No apparent distress.
Abdominal pain: Soft, nontender. Nondistended. No rigidity or guarding. No ecchymoses or erythema.
Patient has a carter catheter: No
Patient has a central line: No
[2025-04-11 09:46] LABS: Blood Urea Nitrogen 14 mg/dl (7-17); Calcium 8.8 mg/dl (8.4-10.2); Carbon Dioxide 27 mmol/L (22-30); Chloride 103 mmol/L (98-107); Estimated Creatinine Clearance 25 ml/min; Glucose 95 mg/dl (70-99); Potassium 4.2 mmol/L (3.5-5.1); Sodium 132 mmol/L (135-145); eGFR 48.63
[2025-04-11 15:15] VITALS: BP 116/71
--- NOTE | 2025-04-11 15:30 | W.PN.SURGUPD ---
Surgical Update
Surgical Update
Telephone follow-up with patient's brother this afternoon reviewing treatment options. He advises of preference to proceed with definitive management of presumedly malignant cecum/ascending colon mass in the setting of future risk for progressive
obstruction and or bleeding.
Laparoscopic assisted right hemicolectomy would be the anticipated procedure that I reviewed in detail with him during our phone call. Any concerns or questions were fully addressed.
Patient will be tentatively added onto the OR schedule for , 04/13/2025.
Okay to continue clear liquid diet until surgery with Ensure but would not advance diet further. No need for mechanical bowel prep given multiple days of liquid diet and risk of exacerbating obstructive symptoms with bowel prep.
--- NOTE | 2025-04-11 15:38 | W.PN.HOSP.TC ---
Today's Communication/Plan
-
Clear liquid diet. Tentatively for surgical intervention on 04/13
Assessment / Plan
Assessment / Plan
SBO - On the basis of adhesion vs cecal mass
resolving however high risk this will happen again given mass
Tumor markers within normal limits
Plan for surgical intervention with tentatively on 04/13
Maintain on clear liquids
Hypercalcemia
Monitor; Improved
Suspect CKD 3b
monitor renal function
Dementia, unknown type
DVT PPX - heparin sq
Code status - Full Code
Anticipated Discharge: 24 - 48 hours
Subjective/Interval History
-
Date of Service: April 11, 2025
Objective Data
-
Labs:
Laboratory Results
04/11/25
07:45
WBC 6.8
Hgb 11.5 L
Hct 36.4 L
Plt Count 267
Sodium 132 L
Potassium 4.2
Chloride 103
Carbon Dioxide 27
BUN 14
Creatinine 1.1 H
Glucose 95
Calcium 8.8
Vital Signs:
Vital Signs
Temp Pulse Resp BP Pulse Ox
97.2 F 69 16 122/66 97
04/11/25 07:20 04/11/25 07:20 04/11/25 07:20 04/11/25 07:20 04/11/25 08:15
I&O
04/10/25 04/11/25 04/12/25
06:59 06:59 06:59
Intake Total 60 1260 / 1260
Balance 60 1260 / 1260
Physical Exam
-
General: Well Developed and No Apparent Distress
HEENT: Normocephalic, Atraumatic and Moist Mucous Membranes
Respiratory: Clear to Auscultation
Cardiac: Regular Rhythm and S1/S2; Negative Murmur, Rub or Gallop
GI: Soft, Nontender, Nondistended and Normal Bowel Sounds; Negative Organomegaly
Rectal: Deferred by Provider
Musculoskeletal: No Clubbing, No Cyanosis and No Edema
Skin: Negative Rash
Neuro: Nonfocal/Grossly Intact
--- NOTE | 2025-04-11 16:36 | CM ---
Addendum entered by Stormy Dallas 04/11/25 17:27:
Correction -Possible surgery on 04/13
Original Note:
Reviewed pt chart. Possible surgery for bowel mass on 04/12/25.
Plan: TBD post surgery
[2025-04-11 23:17] VITALS: BP 116/69
[2025-04-12 08:00] VITALS: BP 110/70
--- NOTE | 2025-04-12 08:04 | W.PN.GS2 ---
Addendum entered and electronically signed by Jovanny Castro MD 04/12/25 16:11:
I was physically present and personally performed the orta portions of the surgical evaluation. I discussed the findings, reviewed the resident�s note, and confirmed the medical decision-making. I provided direct supervision as required and agree
with the assessment and plan as documented with the following additions/corrections:
Patient seen in follow-up this afternoon. Brother and [id number] at bedside. Patient offers no complaints. Denies abdominal pain.
AFVSS
NAD AAO x 3
ABD: Soft, nondistended, nontender on palpation
Assessment/plan: 89-year-old female with probable malignancy/apple core lesion in the ascending colon at the junction of cecum with resultant proximal partial obstruction.
Reviewed with family members and patient management options and preferences to proceed with surgical resection. Laparoscopic assisted right hemicolectomy was reviewed in detail including the operative technique, potential operative findings and the
management, alternative treatment options, benefits and risk such as but not limited to bleeding requiring transfusion, infectious and related complications, iatrogenic injury to surrounding viscera, anastomotic related complications such as leak or
strictures.
Any concerns or questions were fully addressed and written informed consent was obtained.
Invanz on-call to the OR
N.p.o. after midnight
Original Note:
Today's Communication / Plan
-
Right hemicolectomy tentatively scheduled for tomorrow
Clear liquid diet for now
N.p.o. after midnight for surgery tomorrow
Continue pain control, antiemetics as needed
Assessment / Plan
-
Assessment: Patient is an 89-year-old female who presented with partial SBO likely secondary to malignancy based on mass in cecum/ascending colon identified on CTAP 04/07 and 04/09.
AFVSS, no new labs this morning
Benign abdominal exam this morning
Tolerating clear liquid diet
CTAP 04/09: Probable cecal/proximal ascending colon mass; improving distal SBO relative to 04/07 CTAP
CEA, CA 19�9 WNL
Plan:
Right hemicolectomy tentatively scheduled for tomorrow with Dr. Castro
N.p.o. after midnight for surgery tomorrow; clear liquid diet for now
Pain control, antiemetics as needed
Monitor clinical status
Subjective Data
-
Date of Service: April 12, 2025
Patient is seen at the bedside on hospital day #4. Patient states 'I feel good.' No pain. No nausea or vomiting. Per nursing, loose, watery, brown BM this morning. No current complaints.
Objective Data
-
Intake and Output
04/11/25 04/12/25 04/13/25
06:59 06:59 06:59
Intake Total 1260 / 1260 600 / 600
Balance 1260 / 1260 600 / 600
Intake:
Oral fluids 1260 / 1260 600 / 600
Other:
Number of approximated SMALL 1 1
amounts of urine
Number of approximated MODERATE 1 1
amounts of urine
How many times incontinent 1
MODERATE amount urine
How many times incontinent 2
SATURATED amount urine
Vital Signs
Temp Pulse Resp BP Pulse Ox
98.7 F 73 18 110/70 95
04/12/25 08:00 04/12/25 08:00 04/12/25 08:00 04/12/25 08:00 04/12/25 08:00
Lab Results
04/11/25 07:45
04/11/25 07:45
Calcium 8.8 mg/dl (8.4-10.2) 04/11/25 07:45
Total Bilirubin 0.5 mg/dl (0.2-1.3) 04/07/25 18:21
AST 22 U/L (14-36) 04/07/25 18:21
ALT 16 U/L (0-35) 04/07/25 18:21
Alkaline Phosphatase 70 U/L (38-126) 04/07/25 18:21
Total Protein 6.9 g/dl (6.3-8.2) 04/07/25 18:21
Albumin 4.4 g/dl (3.5-5.0) 04/07/25 18:21
Physical Exam
-
General: No apparent distress. Conversant.
Abdominal: Soft, nontender. Nondistended. No rigidity, guarding, or rebound tenderness. No ecchymoses or erythema. No masses appreciated on palpation.
Patient has a carter catheter: No
Patient has a central line: No
[2025-04-12] MEDS: HEPARIN 5000 UNITS SC ×3 (09:02→23:45)
--- NOTE | 2025-04-12 12:44 | PTCARENOTE ---
Patient ambulating in room with supervision. Patient tolerating clear liquid diet, no c/o pain or nausea. RN discussed NPO after mn for surgery tomorrow, patient verbalized understanding. Patient is forgetful, but remembered she was going to the OR
tomorrow.
--- NOTE | 2025-04-12 14:39 | W.PN.HOSP.TC ---
Today's Communication/Plan
-
Echo
OR in a.m.
Assessment / Plan
Assessment / Plan
SBO - On the basis of adhesion vs cecal mass
Overall improved with bowel rest while on clear liquids
Tumor markers within normal limits
Plan for surgical intervention with tentatively on 04/13
Maintain on clear liquids
Cardiac clearance prior to surgery: So far with no prohibitive factors for moderate risk intervention. Noted with abnormal EKG (sinus tachycardia, possible previous inferior infarcts baseline
Exam with systolic murmur
Check echocardiogram
Hypercalcemia
Monitor; Improved
Suspect CKD 3b
monitor renal function
Dementia, unknown type
DVT PPX - heparin sq
Code status - Full Code
Anticipated Discharge: > 48 hours
Subjective/Interval History
-
Date of Service: April 12, 2025
Objective Data
-
Vital Signs:
Vital Signs
Temp Pulse Resp BP Pulse Ox
98.7 F 73 18 110/70 95
04/12/25 08:00 04/12/25 08:00 04/12/25 08:00 04/12/25 08:00 04/12/25 08:00
I&O
04/11/25 04/12/25 04/13/25
06:59 06:59 06:59
Intake Total 1260 / 1260 600 / 600
Balance 1260 / 1260 600 / 600
Physical Exam
-
General: Well Developed and No Apparent Distress
HEENT: Normocephalic, Atraumatic and Moist Mucous Membranes
Respiratory: Clear to Auscultation
Cardiac: Regular Rhythm, S1/S2 and Murmur (3 out of 6 systolic); Negative Rub or Gallop
GI: Soft, Nontender, Nondistended and Normal Bowel Sounds; Negative Organomegaly
Rectal: Deferred by Provider
Musculoskeletal: No Clubbing, No Cyanosis and No Edema
Skin: Negative Rash
Neuro: Nonfocal/Grossly Intact
--- NOTE | 2025-04-12 15:32 | CM ---
Chart reviewed. Spoke with dtr and son-in-law re d/c planning. D/C planning deferred until after surgery. Surgery planned for 11:40 tomorrow; family made aware.
Plan: TBD
[2025-04-12 17:04] VITALS: BP 122/74
[2025-04-12 23:22] VITALS: BP 106/66
[2025-04-12] MEDS: NSS 1000 IV (23:57)
[2025-04-13] VITALS (12 sets, daily range): BP systolic 98–134; BP diastolic 56–71
--- NOTE | 2025-04-13 06:31 | PTCARENOTE ---
Full bed, linen and gown change and CHG wipes done.
[2025-04-13] MEDS: HEPARIN 5000 UNITS SC ×2 (08:14→19:53)
--- NOTE | 2025-04-13 08:43 | W.PN.GS2 ---
Today's Communication / Plan
-
Plan for right hemicolectomy today
N.p.o. for OR
Antibiotics: Invanz prior to surgery
Assessment / Plan
-
Assessment: Patient is an 89-year-old female who presented with partial SBO likely secondary to malignancy based on mass in cecum/ascending colon identified on CTAP 04/07 and 04/09.
AFVSS, no new labs this morning
Benign abdominal exam this morning
CTAP 04/09: Probable cecal/proximal ascending colon mass; improving distal SBO relative to 04/07 CTAP
CEA, CA 19�9 WNL
Plan:
Right hemicolectomy scheduled for today with Dr. Castro
N.p.o. for surgery
Invanz when called to OR
Pain control, antiemetics as needed
Monitor clinical status
Subjective Data
-
Date of Service: April 13, 2025
Patient was seen at the bedside on HD #6. Nursing reports NAEO. No current complaints. No BM since yesterday, no flatus. No nausea or vomiting.
Objective Data
-
Intake and Output
04/12/25 04/13/25 04/14/25
06:59 06:59 06:59
Intake Total 600 / 600 800 / 800 500 / 500
Output Total 100 / 100
Balance 600 / 600 800 / 800 400 / 400
Intake:
Oral fluids 600 / 600 800 / 800
IV fluids (Total) 500 / 500
Output:
Urine, Voided 100 / 100
Other:
Number of approximated SMALL 1
amounts of urine
Number of approximated MODERATE 1 3 2
amounts of urine
How many times incontinent 1
MODERATE amount urine
Vital Signs
Temp Pulse Resp BP Pulse Ox
98.8 F 76 18 106/66 96
04/12/25 23:22 04/12/25 23:22 04/12/25 23:22 04/12/25 23:22 04/12/25 23:22
Lab Results
04/11/25 07:45
04/11/25 07:45
Calcium 8.8 mg/dl (8.4-10.2) 04/11/25 07:45
Total Bilirubin 0.5 mg/dl (0.2-1.3) 04/07/25 18:21
AST 22 U/L (14-36) 04/07/25 18:21
ALT 16 U/L (0-35) 04/07/25 18:21
Alkaline Phosphatase 70 U/L (38-126) 04/07/25 18:21
Total Protein 6.9 g/dl (6.3-8.2) 04/07/25 18:21
Albumin 4.4 g/dl (3.5-5.0) 04/07/25 18:21
Physical Exam
-
General: Apparent distress.
Abdominal: Soft, nontender. Nondistended. No rigidity, guarding, or rebound tenderness. No ecchymoses or erythema.
Patient has a carter catheter: No
Patient has a central line: No
--- NOTE | 2025-04-13 11:14 | CM ---
Pt for R hemicolectomy today. CM will follow for d/c needs post-op
Plan: TBD
--- NOTE | 2025-04-13 11:34 | W.SUR.PREOP ---
Pre-Operative Surgical Note
-
I have examined this patient prior to the performance of the scheduled procedure.
The patient's condition is unchanged from the time of the current History and
Physical and the patient is able to undergo the scheduled procedure.
--- NOTE | 2025-04-13 14:08 | W.IMMPOSTOP ---
Addendum entered and electronically signed by Jovanny Castro MD 04/13/25 14:33:
#[id number]
Original Note:
Surgical Immed Post Op Note
-
Primary Surgeon:Jovanny Castro MD
Assisting Surgeon: Courtney LOPEZ
Pre-op Diagnosis: Partially obstructing colon mass
Post-op Diagnosis: Partially obstructing ascending colon mass
Procedure Performed: Laparoscopic assisted right hemicolectomy
Anesthesia Type: GETA +0.25% Marcaine with epi
Specimen / Cultures: Right colon/None
Estimated Blood Loss: 18 mL
Complications: None immediate
Operative Findings: Palpable partially obstructing ascending colon mass in the proximal ascending colon. No gross evidence of advanced local, regional or peritoneal/metastatic disease. Oncologic right hemicolectomy with high ligation of the
ileocolic pedicle for regional lymph node harvest. Right branch of the middle colic divided at secondary level of branching. [id number] ileocolic anastomosis, Mesfin technique, CHITO purple 80 stapler. Mesenteric window closed.
Incidental right femoral hernia
--- NOTE | 2025-04-13 14:18 | W.PN.HOSP.TC ---
Today's Communication/Plan
-
OR for right hemicolectomy
Assessment / Plan
Assessment / Plan
SBO - On the basis of adhesion vs cecal mass
Overall improved with bowel rest while on clear liquids
Tumor markers within normal limits
Plan for surgical intervention with tentatively on 04/13
Maintain on clear liquids
Cardiac clearance prior to surgery: So far with no prohibitive factors for moderate risk intervention. Noted with abnormal EKG (sinus tachycardia, possible previous inferior infarcts baseline
Exam with systolic murmur
Echo with preserved biventricular function no significant valvular abnormalities.
Hypercalcemia
Monitor; Improved
Suspect CKD 3b
monitor renal function
Dementia, unknown type
DVT PPX - heparin sq
Code status - Full Code
Anticipated Discharge: > 48 hours
Subjective/Interval History
-
Date of Service: April 13, 2025
Objective Data
-
Vital Signs:
Vital Signs
Temp Pulse Resp BP Pulse Ox
98.1 F 77 18 109/66 97
04/13/25 07:00 04/13/25 07:00 04/13/25 07:00 04/13/25 07:00 04/13/25 07:00
I&O
04/12/25 04/13/25 04/14/25
06:59 06:59 06:59
Intake Total 600 / 600 800 / 800 500 / 500
Output Total 150 / 150
Balance 600 / 600 800 / 800 350 / 350
Physical Exam
-
General: Well Developed and No Apparent Distress
HEENT: Normocephalic, Atraumatic and Moist Mucous Membranes
Respiratory: Clear to Auscultation
Cardiac: Regular Rhythm, S1/S2 and Murmur (3 out of 6 systolic); Negative Rub or Gallop
GI: Soft, Nontender, Nondistended and Normal Bowel Sounds; Negative Organomegaly
Rectal: Deferred by Provider
Musculoskeletal: No Clubbing, No Cyanosis and No Edema
Skin: Negative Rash
Neuro: Nonfocal/Grossly Intact
[2025-04-13] MEDS: NSS 1000 IV (16:06)
[2025-04-14] VITALS (7 sets, daily range): BP systolic 125–176; BP diastolic 73–94; PULSE 94; O2SAT 95–96
[2025-04-14] MEDS: NSS 1000 IV ×2 (03:30→14:08)
[2025-04-14] MEDS: HEPARIN 5000 UNITS SC ×2 (07:26→19:21)
[2025-04-14 08:21] LABS: Hematocrit 37.8 % (37.0-47.0); Hemoglobin 12.1 g/dL (12.0-16.0); Mean Corp Hgb Conc. 32.0 g/dL (33.0-37.0); Mean Corpuscular Volume 90.2 fL (81.0-99.0); Platelet Count 328 10^3/uL (130-400); Red Cell Dist. Width 13.9 % (11.5-14.5)
[2025-04-14 08:59] LABS: Blood Urea Nitrogen 9 mg/dl (7-17); Calcium 8.7 mg/dl (8.4-10.2); Carbon Dioxide 24 mmol/L (22-30); Chloride 106 mmol/L (98-107); Estimated Creatinine Clearance 25 ml/min; Glucose 98 mg/dl (70-99); Magnesium 1.9 mg/dl (1.6-2.3); Potassium 4.5 mmol/L (3.5-5.1); Sodium 134 mmol/L (135-145); eGFR 48.63
--- NOTE | 2025-04-14 09:29 | W.PN.GS2 ---
Today's Communication / Plan
-
Clears
d/c carter
OOB
Assessment / Plan
-
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
POD #1 lap assisted right hemicolectomy
Reactive leukocytosis
Mild hyponatremia resolving, CR stable
H/H stable
Will follow for bowel recovery
Plan:
Trial of clear liquids
D/C carter for void trial
IVF until good PO tolerance
Scheduled Tylenol, narcotics prn. No NSAIDs given CKD hx
OOB/Ambulate. Will consult PT/OT to follow. Anticipate return to SNF post operatively.
SCDs while in bed with heparin sq for VTE ppx
Subjective Data
-
Date of Service: April 14, 2025
Pt seen and examined at bedside with Dr. Chow. Does not recall having surgery yesterday and notes she feels very well. Reports some discomfort when abdomen is palpated. Does not believe she has passed gas. Denies active nausea.
Objective Data
-
Intake and Output
04/13/25 04/14/25 04/15/25
06:59 06:59 06:59
Intake Total 800 / 800 1535 / 1535
Output Total 420 / 420
Balance 800 / 800 1115 / 1115
Intake:
Oral fluids 800 / 800
IV fluids (Total) 1535 / 1535
normosol 75 / 75
Output:
Urine, Carter 320 / 320
Urine, Voided 100 / 100
Other:
Number of approximated MODERATE 3 2
amounts of urine
Vital Signs
Temp Pulse Resp BP Pulse Ox
98.1 F 81 16 148/73 95
04/14/25 08:25 04/14/25 08:25 04/14/25 08:25 04/14/25 08:25 04/14/25 08:25
Lab Results
04/14/25 07:26
04/14/25 07:
Calcium 8.7 mg/dl (8.4-10.2) 04/14/25 07:26
Phosphorus 3.8 mg/dl (2.5-4.5) 04/14/25 07:
Magnesium 1.9 mg/dl (1.6-2.3) 04/14/25 07:
Total Bilirubin 0.5 mg/dl (0.2-1.3) 04/07/25 18:21
AST 22 U/L (14-36) 04/07/25 18:21
ALT 16 U/L (0-35) 04/07/25 18:21
Alkaline Phosphatase 70 U/L (38-126) 04/07/25 18:21
Total Protein 6.9 g/dl (6.3-8.2) 04/07/25 18:21
Albumin 4.4 g/dl (3.5-5.0) 04/07/25 18:21
Physical Exam
-
General: Apparent distress
Abdominal: Soft, expected incisional tenderness, nondistended
Incisions well approximated with intact glue
Patient has a carter catheter: Yes
Patient has a central line: No
[2025-04-14] MEDS: DILAUDID 0.25 MG IV (14:06)
[2025-04-14] MEDS: DILAUDID 0.5 MG IV (14:32)
--- NOTE | 2025-04-14 15:55 | CM ---
Reviewed chart. Met with pt at bedside. IMM given, family given link to [employer].gov resource for visiting nurses.
Plan: Return to [facility] with [facility]
--- NOTE | 2025-04-14 16:39 | W.PN.HOSP.TC ---
Today's Communication/Plan
-
Status post right hemicolectomy for partially obstructing colonic mass pending pathology. Starting clears
Baker is out
PT assessment
Assessment / Plan
Assessment / Plan
SBO - On the basis of adhesion vs cecal mass
Overall improved with bowel rest while on clear liquids
Tumor markers within normal limits
Status post laparoscopic assisted right hemicolectomy on 04/13 with intraoperative findings of partially obstructing colon mass pending final pathology.
Postoperative care: Clear liquid diet.
Baker catheter removed as of 04/14
Cardiac clearance prior to surgery: So far with no prohibitive factors for moderate risk intervention. Noted with abnormal EKG (sinus tachycardia, possible previous inferior infarcts baseline
Exam with systolic murmur
Echo with preserved biventricular function no significant valvular abnormalities.
Hypercalcemia
Monitor; Improved
Suspect CKD 3b
monitor renal function
Dementia, unknown type
DVT PPX - heparin sq
Code status - Full Code
Anticipated Discharge: 24 - 48 hours
Subjective/Interval History
-
Date of Service: April 14, 2025
Objective Data
-
Labs:
Laboratory Results
04/14/25
07:26
WBC 15.3 H
Hgb 12.1
Hct 37.8
Plt Count 328 D
Sodium 134 L
Potassium 4.5
Chloride 106
Carbon Dioxide 24
BUN 9
Creatinine 1.1 H
Glucose 98
Calcium 8.7
Vital Signs:
Vital Signs
Temp Pulse Resp BP Pulse Ox
98.0 F 88 20 133/79 93
04/14/25 15:30 04/14/25 15:30 04/14/25 15:30 04/14/25 15:30 04/14/25 15:30
I&O
04/13/25 04/14/25 04/15/25
06:59 06:59 06:59
Intake Total 800 / 800 1535 / 1535
Output Total 420 / 420
Balance 800 / 800 1115 / 1115
Physical Exam
-
General: Well Developed and No Apparent Distress
HEENT: Normocephalic, Atraumatic and Moist Mucous Membranes
Respiratory: Clear to Auscultation
Cardiac: Regular Rhythm, S1/S2 and Murmur (3 out of 6 systolic); Negative Rub or Gallop
GI: Soft, Nontender, Nondistended and Normal Bowel Sounds; Negative Organomegaly
Rectal: Deferred by Provider
Musculoskeletal: No Clubbing, No Cyanosis and No Edema
Skin: Negative Rash
Neuro: Nonfocal/Grossly Intact
--- NOTE | 2025-04-14 18:21 | PTCARENOTE ---
Covered pt from 3p to 7p. Pt denies pain. Walked in room with physical therapy. family at the bedside. call johnson in reach.
[2025-04-15] MEDS: DILAUDID 0.5 MG IV ×2 (03:04→10:46)
[2025-04-15] MEDS: NSS 1000 IV (03:04)
[2025-04-15 07:12] VITALS: BP 136/72
[2025-04-15] MEDS: HEPARIN 5000 UNITS SC (07:42)
[2025-04-15 08:41] LABS: Hematocrit 36.9 % (37.0-47.0); Hemoglobin 11.7 g/dL (12.0-16.0); Mean Corp Hgb Conc. 31.7 g/dL (33.0-37.0); Mean Corpuscular Volume 89.8 fL (81.0-99.0); Platelet Count 310 10^3/uL (130-400); Red Cell Dist. Width 14.0 % (11.5-14.5)
--- NOTE | 2025-04-15 09:23 | W.PN.HOSP.TC ---
Addendum entered and electronically signed by Suzanna Roche MD 04/15/25 09:35:
# RUE swelling likely 2/2 IV infiltration
IV line removed
Check RUE US
Original Note:
Today's Communication/Plan
-
see A/P
Assessment / Plan
Assessment / Plan
A/P:
# SBO - On the basis of adhesion vs cecal mass
Tumor markers within normal limits
Status post laparoscopic assisted right hemicolectomy on 04/13 with intraoperative findings of partially obstructing colon mass pending final pathology.
Currently on clear liquid post op
Baker catheter removed as of 04/14
Postoperative care per CRS
# systolic murmur
Echo with preserved biventricular function no significant valvular abnormalities.
# Hypercalcemia, resolved
# Suspect CKD 3b
SCr 1.1 pending SCr today
monitor renal function
# Dementia, unknown type
DVT PPX - heparin sq
Code status - Full Code
Anticipated Discharge: 24 - 48 hours
Subjective/Interval History
-
Date of Service: April 15, 2025
Objective Data
-
Labs:
Laboratory Results
04/15/25
08:27
WBC 9.6
Hgb 11.7 L
Hct 36.9 L
Plt Count 310
Sodium Pending
Potassium Pending
Chloride Pending
Carbon Dioxide Pending
BUN Pending
Creatinine Pending
Glucose Pending
Calcium Pending
Vital Signs:
Vital Signs
Temp Pulse Resp BP Pulse Ox
37.0 C 79 16 136/72 96
04/15/25 07:12 04/15/25 07:12 04/15/25 07:12 04/15/25 07:12 04/15/25 07:12
I&O
04/14/25 04/15/25 04/16/25
06:59 06:59 06:59
Intake Total 1535 / 1535
Output Total 420 / 420
Balance 1115 / 1115
Review of Systems
-
History Source: Patient
All other systems: Reviewed and negative
Physical Exam
-
General: Well Developed, No Apparent Distress, Comfortable and Conversant
HEENT: Normocephalic, Atraumatic and Moist Mucous Membranes
Respiratory: Clear to Auscultation
Cardiac: Regular Rhythm and S1/S2
GI: Soft, Nontender, Nondistended and Normal Bowel Sounds; Negative Organomegaly
Rectal: Deferred by Provider
Musculoskeletal: No Clubbing, No Cyanosis and No Edema
Skin: Negative Rash
Neuro: Awake and Alert
Psych: Calm and Intact Judgement/Insight
Data Reviewed
-
Labs: Labs Reviewed by me
[2025-04-15 09:39] VITALS: BP 137/74; BP 140/86; BP 149/78; PULSE 79; PULSE 87; PULSE 93
[2025-04-15 09:49] LABS: Blood Urea Nitrogen 8 mg/dl (7-17); Calcium 8.7 mg/dl (8.4-10.2); Carbon Dioxide 26 mmol/L (22-30); Chloride 103 mmol/L (98-107); Estimated Creatinine Clearance 25 ml/min; Glucose 89 mg/dl (70-99); Potassium 4.3 mmol/L (3.5-5.1); Sodium 132 mmol/L (135-145); eGFR 48.63
[2025-04-15 11:19] LABS: APTT 31.5 Sec (23.4-35.0)
[2025-04-15] MEDS: HEPARIN 25000 UNITS/250 ML IV (11:50)
--- NOTE | 2025-04-15 12:07 | PTCARENOTE ---
Pt started on heparin gtt. When starting gtt, units and rate noted not to match up. 480 units/hr at 5ml/hr ordered, when 480 units/hr = 4.8ml/hr. Verified with pharmacy who said to start gtt based on units/hr ordered. Heparin gtt infusing at 480
units/hr, 4.8ml/hr.
--- NOTE | 2025-04-15 12:19 | W.PN.GS2 ---
Today's Communication / Plan
-
Ok for IV heparin
Clears as tolerated
Assessment / Plan
-
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
POD #2 lap assisted right hemicolectomy
Reactive leukocytosis
Mild hyponatremia stable, CR stable
H/H stable
Will follow for bowel recovery
RUE edema with DVT noted on US today
Plan:
Continue with clear liquids with supplements
IVF as per primary team
Scheduled Tylenol, narcotics prn. No NSAIDs given CKD hx
OOB/Ambulate. PT/OT to follow. Anticipate return to SNF post operatively.
OK for IV heparin from surgical standpoint, would hold off on oral AC until more recovered from surgery
Will follow h/h on heparin gtt
Subjective Data
-
Date of Service: April 15, 2025
Pt seen and examined at bedside with Dr. Chow. Not sure if she is passing any flatus. Denies pain but does have tenderness at incisions. No BM's per primary nurse. Voiding ok.
Objective Data
-
Intake and Output
04/14/25 04/15/25 04/16/25
06:59 06:59 06:59
Intake Total 1535 / 1535
Output Total 420 / 420
Balance 1115 / 1115
Intake:
IV fluids (Total) 1535 / 1535
normosol 75 / 75
Output:
Urine, Carter 320 / 320
Urine, Voided 100 / 100
Other:
Number of approximated MODERATE 2 2
amounts of urine
Number of approximated LARGE 3
amounts of urine
Vital Signs
Temp Pulse Resp BP Pulse Ox
98.6 F 79 16 136/72 96
04/15/25 07:12 04/15/25 07:12 04/15/25 07:12 04/15/25 07:12 04/15/25 07:12
Lab Results
04/15/25 08:27
04/15/25 08:27
Calcium 8.7 mg/dl (8.4-10.2) 04/15/25 08:27
Phosphorus 3.8 mg/dl (2.5-4.5) 04/14/25 07:26
Magnesium 1.9 mg/dl (1.6-2.3) 04/14/25 07:26
Total Bilirubin 0.5 mg/dl (0.2-1.3) 04/07/25 18:21
AST 22 U/L (14-36) 04/07/25 18:21
ALT 16 U/L (0-35) 04/07/25 18:21
Alkaline Phosphatase 70 U/L (38-126) 04/07/25 18:21
Total Protein 6.9 g/dl (6.3-8.2) 04/07/25 18:21
Albumin 4.4 g/dl (3.5-5.0) 04/07/25 18:21
Physical Exam
-
General: Apparent distress
Abdominal: Soft, expected incisional tenderness, nondistended
Incisions well approximated with intact glue
RUE with edema
Patient has a carter catheter: No
Patient has a central line: No
[2025-04-15 15:35] VITALS: BP 142/80
[2025-04-15] MEDS: TYLENOL PO (16:37)
[2025-04-15] MEDS: ULTRAM 50 MG PO (17:30)
[2025-04-15 18:21] LABS: APTT 33.8 Sec (23.4-35.0)
[2025-04-15] MEDS: HEPARIN 3500 UNITS IV (18:36)
[2025-04-15] MEDS: TYLENOL 650 MG PO ×2 (19:21→23:07)
[2025-04-15 23:00] VITALS: BP 129/88; BP 131/75; BP 148/87; PULSE 102; PULSE 81; PULSE 93
[2025-04-16 01:33] LABS: APTT 64.3 Sec (23.4-35.0)
[2025-04-16] MEDS: HEPARIN 1700 UNITS IV (01:51)
[2025-04-16] MEDS: TYLENOL 650 MG PO ×2 (03:44→15:45)
[2025-04-16 07:55] LABS: Hematocrit 37.1 % (37.0-47.0); Hemoglobin 11.6 g/dL (12.0-16.0); Mean Corp Hgb Conc. 31.3 g/dL (33.0-37.0); Mean Corpuscular Volume 89.8 fL (81.0-99.0); Platelet Count 280 10^3/uL (130-400); Red Cell Dist. Width 13.8 % (11.5-14.5)
[2025-04-16 07:58] VITALS: BP 139/96; BP 143/86; BP 144/94; PULSE 100; PULSE 72; PULSE 85
[2025-04-16 08:09] LABS: APTT 125.5 Sec (23.4-35.0)
[2025-04-16] MEDS: TYLENOL PO ×5 (08:31→23:35)
[2025-04-16 08:55] LABS: Blood Urea Nitrogen 9 mg/dl (7-17); Calcium 9.1 mg/dl (8.4-10.2); Carbon Dioxide 25 mmol/L (22-30); Chloride 102 mmol/L (98-107); Estimated Creatinine Clearance 27 ml/min; Glucose 94 mg/dl (70-99); Magnesium 1.7 mg/dl (1.6-2.3); Potassium 4.1 mmol/L (3.5-5.1); Sodium 130 mmol/L (135-145); eGFR 54.53
--- NOTE | 2025-04-16 09:11 | W.PN.HOSP.TC ---
Today's Communication/Plan
-
see A/P
Assessment / Plan
Assessment / Plan
A/P:
# SBO - On the basis of adhesion vs cecal mass
Tumor markers within normal limits
Status post laparoscopic assisted right hemicolectomy on 04/13 with intraoperative findings of partially obstructing colon mass pending final pathology.
Currently on clear liquid post op
Baker catheter removed as of 04/14
Postoperative care per CRS
# systolic murmur
Echo with preserved biventricular function no significant valvular abnormalities.
# Hypercalcemia, resolved
# Suspect CKD 3b
SCr 1.0 today
monitor renal function
# Dementia, unknown type
DVT PPX - heparin sq
Code status - Full Code
Dispo: HH per PT
Anticipated Discharge: 24 - 48 hours
Subjective/Interval History
-
Date of Service: April 16, 2025
Objective Data
-
Labs:
Laboratory Results
04/16/25 04/16/25 04/16/25
01:05 07:46 14:30
WBC 7.8
Hgb 11.6 L
Hct 37.1
Plt Count 280
APTT 64.3 H 125.5 H Pending
Sodium 130 L
Potassium 4.1
Chloride 102
Carbon Dioxide 25
BUN 9
Creatinine 1.0
Glucose 94
Calcium 9.1
Vital Signs:
Vital Signs
Temp Pulse Resp BP Pulse Ox
36.5 C 72 16 131/75 94
04/16/25 07:58 04/16/25 07:58 04/16/25 07:58 04/15/25 23:00 04/16/25 07:58
I&O
04/15/25 04/16/25 04/17/25
06:59 06:59 06:59
Intake Total 420 / 420
Balance 420 / 420
Review of Systems
-
History Source: Patient
All other systems: Reviewed and negative
Physical Exam
-
General: Well Developed, No Apparent Distress, Comfortable and Conversant
HEENT: Normocephalic, Atraumatic, Moist Mucous Membranes and Hearing Impaired
Respiratory: Clear to Auscultation and Non Labored Respirations; Negative Accessory Resp Muscle Use
Cardiac: Regular Rhythm and S1/S2
GI: Soft, Nontender, Nondistended and Normal Bowel Sounds; Negative Organomegaly
Rectal: Deferred by Provider
Musculoskeletal: No Clubbing, No Cyanosis and No Edema
Skin: Negative Rash
Neuro: Awake and Alert
Psych: Calm and Intact Judgement/Insight
Data Reviewed
-
Labs: Labs Reviewed by me
--- NOTE | 2025-04-16 11:21 | W.PN.GS2 ---
Today's Communication / Plan
-
Advance diet
Assessment / Plan
-
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
POD #3 lap assisted right hemicolectomy
9/ RUE edema with DVT noted on US
Reactive leukocytosis resolved
Mild hyponatremia, CR stable
H/H stable on AC
Will follow for bowel recovery
Plan:
Start regular diet
Scheduled Tylenol, narcotics prn. No NSAIDs given CKD hx
OOB/Ambulate. PT/OT to follow. Anticipate return to SNF post operatively.
OK for IV heparin from surgical standpoint, would hold off on oral AC until more recovered from surgery
Subjective Data
-
Date of Service: April 16, 2025
Pt seen and examined at bedside with Dr. Chow. Denies n/v. Tolerating clears. Not sure if she is passing flatus. OOB to chair. No Bm's recoreded. Denies pain.
Objective Data
-
Intake and Output
04/15/25 04/16/25 04/17/25
06:59 06:59 06:59
Intake Total 420 / 420
Balance 420 / 420
Intake:
Oral fluids 420 / 420
Other:
Number of approximated MODERATE 2 4
amounts of urine
Number of approximated LARGE 3 1
amounts of urine
How many times incontinent 1
SATURATED amount urine
Vital Signs
Temp Pulse Resp BP Pulse Ox
97.7 F 72 16 131/75 94
04/16/25 07:58 04/16/25 07:58 04/16/25 07:58 04/15/25 23:00 04/16/25 07:58
Lab Results
04/16/25 07:46
04/16/25 07:46
Calcium 9.1 mg/dl (8.4-10.2) 04/16/25 07:46
Phosphorus 3.8 mg/dl (2.5-4.5) 04/14/25 07:26
Magnesium 1.7 mg/dl (1.6-2.3) 04/16/25 07:46
Total Bilirubin 0.5 mg/dl (0.2-1.3) 04/07/25 18:21
AST 22 U/L (14-36) 04/07/25 18:21
ALT 16 U/L (0-35) 04/07/25 18:21
Alkaline Phosphatase 70 U/L (38-126) 04/07/25 18:21
Total Protein 6.9 g/dl (6.3-8.2) 04/07/25 18:21
Albumin 4.4 g/dl (3.5-5.0) 04/07/25 18:21
Physical Exam
-
General: Apparent distress
Abdominal: Soft, expected incisional tenderness, nondistended
Incisions well approximated with intact glue
RUE with edema
Patient has a carter catheter: No
Patient has a central line: No
--- NOTE | 2025-04-16 13:30 | PTCARENOTE ---
Patient tolerating regular diet as evidenced by lack of nausea, vomitting, and abdominal distention post prandial.
[2025-04-16 15:17] LABS: APTT 48.4 Sec (23.4-35.0)
[2025-04-16] MEDS: HEPARIN 3500 UNITS IV (15:28)
[2025-04-16 16:28] VITALS: BP 140/99
[2025-04-16] MEDS: ULTRAM 50 MG PO (16:37)
--- NOTE | 2025-04-16 16:56 | PTCARENOTE ---
patient complaining of moderate RUQ abdominal pain. PRN tramadol administered for pain management. ambulation encouraged.
[2025-04-16 22:34] LABS: APTT 108.0 Sec (23.4-35.0)
[2025-04-16 23:23] VITALS: BP 138/87
[2025-04-17] MEDS: HEPARIN 25000 UNITS/250 ML IV (00:48)
[2025-04-17] MEDS: TYLENOL PO ×2 (04:02→23:13)
[2025-04-17 04:27] LABS: Hematocrit 36.1 % (37.0-47.0); Hemoglobin 11.5 g/dL (12.0-16.0); Mean Corp Hgb Conc. 31.9 g/dL (33.0-37.0); Mean Corpuscular Volume 87.6 fL (81.0-99.0); Platelet Count 318 10^3/uL (130-400); Red Cell Dist. Width 13.6 % (11.5-14.5)
[2025-04-17 04:45] LABS: APTT 64.0 Sec (23.4-35.0)
[2025-04-17] MEDS: HEPARIN 3500 UNITS IV (04:50)
[2025-04-17 05:19] LABS: Blood Urea Nitrogen 14 mg/dl (7-17); Calcium 8.7 mg/dl (8.4-10.2); Carbon Dioxide 24 mmol/L (22-30); Chloride 102 mmol/L (98-107); Estimated Creatinine Clearance 27 ml/min; Glucose 94 mg/dl (70-99); Potassium 4.3 mmol/L (3.5-5.1); Sodium 129 mmol/L (135-145); eGFR 54.53
[2025-04-17 07:23] VITALS: BP 135/73
[2025-04-17] MEDS: TYLENOL 650 MG PO ×4 (08:03→20:43)
--- NOTE | 2025-04-17 08:29 | W.PN.HOSP.TC ---
Today's Communication/Plan
-
see A/P
Assessment / Plan
Assessment / Plan
A/P:
# SBO - On the basis of adhesion vs cecal mass
Tumor markers within normal limits
Status post laparoscopic assisted right hemicolectomy on 04/13 with intraoperative findings of partially obstructing colon mass pending final pathology.
diet advanced to regular
Baker catheter removed on 04/14
Postoperative care per CRS
# systolic murmur
Echo with preserved biventricular function no significant valvular abnormalities.
# Hypercalcemia, resolved
# Suspect CKD 3b
SCr 1.0 today
monitor renal function
# Dementia, unknown type
# RUE swelling with R brachial vein occlusive thrombus (DVT), provoked by IV line
Started anticoagulation with heparin drip, need 3 months AC
# Hyponatremia
monitor
DVT PPX - heparin drip
Code status - Full Code
Dispo: HH per PT
updated brother on the phone
Anticipated Discharge: Within 24 hours
Subjective/Interval History
-
Date of Service: April 17, 2025
Objective Data
-
Labs:
Laboratory Results
04/16/25 04/17/25 04/17/25
22:14 04:20 11:00
WBC 10.0
Hgb 11.5 L
Hct 36.1 L
Plt Count 318
APTT 108.0 H 64.0 H Pending
Sodium 129 L
Potassium 4.3
Chloride 102
Carbon Dioxide 24
BUN 14
Creatinine 1.0
Glucose 94
Calcium 8.7
Vital Signs:
Vital Signs
Temp Pulse Resp BP Pulse Ox
36.8 C 91 18 135/73 95
04/17/25 07:23 04/17/25 07:23 04/17/25 07:23 04/17/25 07:23 04/17/25 07:23
I&O
04/16/25 04/17/25 04/18/25
06:59 06:59 06:59
Intake Total 420 / 420 120 / 120
Balance 420 / 420 120 / 120
Review of Systems
-
History Source: Patient
All other systems: Reviewed and negative
Physical Exam
-
General: Well Developed, No Apparent Distress, Comfortable and Conversant
HEENT: Normocephalic, Atraumatic, Moist Mucous Membranes and Hearing Impaired
Respiratory: Clear to Auscultation and Non Labored Respirations; Negative Accessory Resp Muscle Use
Cardiac: Regular Rhythm and S1/S2
GI: Soft, Nontender, Nondistended and Normal Bowel Sounds; Negative Organomegaly
Rectal: Deferred by Provider
Musculoskeletal: No Clubbing, No Cyanosis and No Edema
Skin: Negative Rash
Neuro: Awake and Alert
Psych: Calm
Data Reviewed
-
Labs: Labs Reviewed by me
[2025-04-17 09:08] VITALS: BP 140/78; BP 146/75; BP 148/98; PULSE 111; PULSE 87; PULSE 98
--- NOTE | 2025-04-17 09:59 | W.PN.GS2 ---
Today's Communication / Plan
-
Back down on diet to clear liquids only.
Assessment / Plan
-
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
POD #4 lap assisted right hemicolectomy
9 RUE edema with DVT noted on US
Reactive leukocytosis resolved
Mild hyponatremia, Cr stable
H/H stable on AC
Abdomen more distended this morning after advancing diet
Will follow for bowel recovery
Plan:
Back down on diet - clear liquid diet ordered
Continue scheduled Tylenol, narcotics prn. No NSAIDs given CKD hx
OOB/Ambulate. PT/OT to follow. Anticipate return to SNF post operatively.
OK for IV heparin from surgical standpoint, would hold off on oral AC until more recovered from surgery
Subjective Data
-
Date of Service: April 17, 2025
Patient seen and examined at the bedside with Dr. Chow. Today patient is postop day 4. Patient denies N/V. Patient has not had a BM recorded. Patient is unsure if she is passing flatulence. Patient denies pain. Patient is more distended
today after advancing her diet yesterday.
Objective Data
-
Intake and Output
04/16/25 04/17/25 04/18/25
06:59 06:59 06:59
Intake Total 420 / 420 120 / 120
Balance 420 / 420 120 / 120
Intake:
Oral fluids 420 / 420 120 / 120
Other:
Number of approximated MODERATE 4 3
amounts of urine
Number of approximated LARGE 1
amounts of urine
How many times incontinent 1
SATURATED amount urine
Vital Signs
Temp Pulse Resp BP Pulse Ox
98.2 F 91 18 135/73 95
09/08/25 07:23 04/17/25 07:23 04/17/25 07:23 04/17/25 07:23 04/17/25 07:23
Lab Results
04/17/25 04:20
04/17/25 04:20
Calcium 8.7 mg/dl (8.4-10.2) 04/17/25 04:20
Phosphorus 3.8 mg/dl (2.5-4.5) 04/14/25 07:26
Magnesium 1.7 mg/dl (1.6-2.3) 04/16/25 07:46
Total Bilirubin 0.5 mg/dl (0.2-1.3) 04/07/25 18:21
AST 22 U/L (14-36) 04/07/25 18:21
ALT 16 U/L (0-35) 04/07/25 18:21
Alkaline Phosphatase 70 U/L (38-126) 04/07/25 18:21
Total Protein 6.9 g/dl (6.3-8.2) 04/07/25 18:21
Albumin 4.4 g/dl (3.5-5.0) 04/07/25 18:21
Physical Exam
-
General: Well developed, no apparent distress, comfortable
Abdomen: soft, with increased distention, incisions well approximated
MSK: RUE with resolving edema
Patient has a carter catheter: No
Patient has a central line: No
[2025-04-17 11:36] LABS: APTT 127.2 Sec (23.4-35.0)
[2025-04-17 11:38] VITALS: BP 122/93; BP 122/95; PULSE 100; PULSE 97; O2SAT 100; O2SAT 97
[2025-04-17 15:19] VITALS: BP 119/70
--- NOTE | 2025-04-17 15:46 | PTCARENOTE ---
Patient's family, in room, visiting. Without asking this RN, family gave yogurt to patient. This RN did educate family on importance of asking the providers if okay to provide outside food to patient because plan of care and treatment can change
from day to day. This RN did inform family that patient is now on clears and not allowed yogurt or other solids.
[2025-04-17] MEDS: ULTRAM 50 MG PO (15:50)
[2025-04-17 18:18] LABS: APTT 69.0 Sec (23.4-35.0)
[2025-04-17] MEDS: HEPARIN 1700 UNITS IV (18:31)
[2025-04-18] VITALS: BP 131/87; BP 142/90; BP 149/85; PULSE 84; PULSE 85; PULSE 89
[2025-04-18 01:52] LABS: APTT 188.9 Sec (23.4-35.0)
[2025-04-18] MEDS: TYLENOL PO ×4 (04:48→23:32)
[2025-04-18 06:45] LABS: Hematocrit 34.2 % (37.0-47.0); Hemoglobin 10.8 g/dL (12.0-16.0); Mean Corp Hgb Conc. 31.6 g/dL (33.0-37.0); Mean Corpuscular Volume 87.9 fL (81.0-99.0); Platelet Count 334 10^3/uL (130-400); Red Cell Dist. Width 13.8 % (11.5-14.5)
[2025-04-18 06:56] LABS: APTT 48.7 Sec (23.4-35.0)
[2025-04-18] MEDS: HEPARIN 3500 UNITS IV ×2 (07:10→22:27)
[2025-04-18 07:20] VITALS: BP 124/71
--- NOTE | 2025-04-18 07:23 | PTCARENOTE ---
Patient is currently on a hep gtt for RA DVT from an IV infiltrate. There is still some slight edema on posterior side of RA but positive radial pulse. Hep gtt was running at 7.8 mL/hr at change of shift. PTT at 0030 was critical high at 188.9. Per
protocol, hep gtt was held for 1 hour and reduced down to 6.8 mL/hr. COMPUTER GAME PROGRAMMER was notified of critical value. PTT drawn again at 0630. During change of shift, PTT came back at 48.7. Per protocol, bolus of 3500 units (0.7 mL) and increase by 1 mL/hr.
Verified with oncoming RN the new rate of 7.8 mL/hr. Next PTT lab ordered for 1315.
[2025-04-18 07:38] LABS: Blood Urea Nitrogen 18 mg/dl (7-17); Calcium 8.9 mg/dl (8.4-10.2); Carbon Dioxide 24 mmol/L (22-30); Chloride 103 mmol/L (98-107); Estimated Creatinine Clearance 27 ml/min; Glucose 85 mg/dl (70-99); Magnesium 1.7 mg/dl (1.6-2.3); Potassium 4.3 mmol/L (3.5-5.1); Sodium 129 mmol/L (135-145); eGFR 54.53
--- NOTE | 2025-04-18 09:04 | W.PN.HOSP.TC ---
Today's Communication/Plan
-
see A/P
Assessment / Plan
Assessment / Plan
A/P:
# SBO, on the basis of adhesion vs cecal mass
Tumor markers within normal limits
Status post laparoscopic assisted right hemicolectomy on 04/13 with intraoperative findings of partially obstructing colon mass pending final pathology.
Baker catheter removed on 04/14
diet was advanced to regular, then back to clears due to more distension noted on 04/17
Minimal bowel sound appreciated on 04/18, discussed with GS
Postoperative care per CRS
# systolic murmur
Echo with preserved biventricular function no significant valvular abnormalities.
# Hypercalcemia, resolved
# Suspect CKD 3b
SCr 1.0 today
monitor renal function
# Dementia, unknown type
# RUE swelling with R brachial vein occlusive thrombus (DVT), provoked by IV line
Started anticoagulation with heparin drip, need 3 months AC Rx
# Hyponatremia
monitor
DVT PPX - heparin drip
Code status - Full Code
Dispo: HH per PT
DW RN
DW GS
Anticipated Discharge: > 48 hours
Subjective/Interval History
-
Date of Service: April 18, 2025
Objective Data
-
Labs:
Laboratory Results
04/18/25 04/18/25 04/18/25
00:26 06:27 13:15
WBC 7.4
Hgb 10.8 L
Hct 34.2 L
Plt Count 334
APTT 188.9 H* 48.7 H Pending
Sodium 129 L
Potassium 4.3
Chloride 103
Carbon Dioxide 24
BUN 18 H
Creatinine 1.0
Glucose 85
Calcium 8.9
Vital Signs:
Vital Signs
Temp Pulse Resp BP Pulse Ox
36.5 C 82 18 124/71 95
04/18/25 07:20 04/18/25 07:20 04/18/25 07:20 04/18/25 07:20 04/18/25 07:20
I&O
04/17/25 04/18/25 04/19/25
06:59 06:59 06:59
Intake Total 120 / 120 360 / 360
Balance 120 / 120 360 / 360
Review of Systems
-
History Source: Patient
All other systems: Reviewed and negative
Physical Exam
-
General: Well Developed, No Apparent Distress, Comfortable and Conversant
HEENT: Normocephalic, Atraumatic, Moist Mucous Membranes and Hearing Impaired
Respiratory: Clear to Auscultation and Non Labored Respirations; Negative Accessory Resp Muscle Use
Cardiac: Regular Rhythm and S1/S2
GI: Soft and Nondistended; Negative Organomegaly
Rectal: Deferred by Provider
Musculoskeletal: No Clubbing, No Cyanosis and No Edema
Skin: Negative Rash
Neuro: Awake and Alert
Psych: Calm
Data Reviewed
-
Labs: Labs Reviewed by me
--- NOTE | 2025-04-18 10:08 | W.PN.GS2 ---
Addendum entered and electronically signed by Angel Lloyd MD 04/18/25 14:42:
Patient seen examined.
Oriented to place, person, and reason for being in the hospital. Denies nausea or vomiting. No reports of flatus or BM. Nursing reports a loose bowel movement. No fevers. Reports abdominal discomfort.
Gen: NAD
Abd: soft, tender diffusely (mostly over incision, distractible), mild distension, non-peritoneal, incisions c/d/i - no erythema, ecchymosis or drainage
Patient is an 89 yo F p/w partial SBO secondary to cecal mass
POD #5 lap assisted right hemicolectomy
9/6 RUE edema with DVT noted on US
Reactive leukocytosis resolved
Mild hyponatremia, Cr stable
H/H stable on AC
Showing signs of clinical improvement with passage of BM and a stable abdomen. Plan to advance to fulls and will start MiraLAX. Tentative plan for solid foods tomorrow if continues to tolerate.
Plan:
-- Fulls, Ensure supplementation as tolerated
-- MiraLAX to stimulate bowel
-- Pain control: Tylenol and Tramadol
-- OOB/Ambulate. PT/OT to follow. Anticipate return to SNF post operatively.
-- OK for IV heparin from surgical standpoint, would hold off on oral AC until more recovered from surgery (possibly tomorrow 04/19)
Original Note:
Today's Communication / Plan
-
Continue clears with Ensure supplementation as tolerated
Will try miraLAX today
Assessment / Plan
-
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
POD #5 lap assisted right hemicolectomy
9/6 RUE edema with DVT noted on US
Reactive leukocytosis resolved
Mild hyponatremia, Cr stable
H/H stable on AC
Abdomen more distended after attempting to advance diet, currently on clears
Will follow for bowel recovery
Plan:
Stay on clear diet today, can have Ensure supplementation as tolerated
Will try miraLAX to stimulate bowel
If no BM by POD7, will repeat imaging
Continue scheduled Tylenol, narcotics prn. No NSAIDs given CKD hx
OOB/Ambulate. PT/OT to follow. Anticipate return to SNF post operatively.
OK for IV heparin from surgical standpoint, would hold off on oral AC until more recovered from surgery
Subjective Data
-
Date of Service: April 18, 2025
Patient seen and examined at the bedside with Dr. Lloyd. Today patient is postop day 5. Patient denies N/V. Patient has not had a BM recorded. Patient is not passing flatulence. Patient denies pain. Patient is less distended than yesterday,
although slightly more tender to palpation. Patient rates the pain a 1/10.
Objective Data
-
Intake and Output
04/17/25 04/18/25 04/19/25
06:59 06:59 06:59
Intake Total 120 / 120 360 / 360
Balance 120 / 120 360 / 360
Intake:
Oral fluids 120 / 120 360 / 360
Other:
Number of approximated MODERATE 3 3
amounts of urine
How many times incontinent 1
SATURATED amount urine
Vital Signs
Temp Pulse Resp BP Pulse Ox
97.7 F 82 18 124/71 95
04/18/25 07:20 04/18/25 07:20 04/18/25 07:20 04/18/25 07:20 04/18/25 07:20
Lab Results
04/18/25 06:27
04/18/25 06:27
Calcium 8.9 mg/dl (8.4-10.2) 04/18/25 06:27
Phosphorus 3.8 mg/dl (2.5-4.5) 04/14/25 07:26
Magnesium 1.7 mg/dl (1.6-2.3) 04/18/25 06:27
Total Bilirubin 0.5 mg/dl (0.2-1.3) 04/07/25 18:21
AST 22 U/L (14-36) 04/07/25 18:21
ALT 16 U/L (0-35) 04/07/25 18:21
Alkaline Phosphatase 70 U/L (38-126) 04/07/25 18:21
Total Protein 6.9 g/dl (6.3-8.2) 04/07/25 18:21
Albumin 4.4 g/dl (3.5-5.0) 04/07/25 18:21
Physical Exam
-
General: Well developed, no apparent distress, comfortable
Abdomen: soft, not distended, incisions well approximated, mildly tender
MSK: RUE with resolving edema
Patient has a carter catheter: No
Patient has a central line: No
--- NOTE | 2025-04-18 12:49 | CM ---
Call from Jose L at [facility]
Bed available tomorrow if patient is stable
Jose L request call in am if patient will be discharged
no pre auth needed
PLAN: [facility] SNF when stable
Report #: [phone] Fax #: [phone]
[2025-04-18] MEDS: MIRALAX 17 GRAMS PO (13:46)
[2025-04-18 13:55] LABS: APTT > 200 Sec (23.4-35.0)
[2025-04-18] MEDS: ULTRAM 50 MG PO (14:21)
--- NOTE | 2025-04-18 14:46 | W.PN.UPDATE ---
Update Note
Progress Note Update
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
Consult oncology.
Updated brother Ruben on the phone about finding.
It is likely that the patient may need long-term anticoagulation and not just 3 months for the right brachial vein thrombosis (high thrombotic risk with active cancer)
Total time 51 minutes
[2025-04-18] MEDS: TYLENOL 650 MG PO ×2 (15:22→20:15)
[2025-04-18 15:53] VITALS: BP 113/66
[2025-04-18] MEDS: HEPARIN 25000 UNITS/250 ML IV (16:07)
[2025-04-18 22:20] LABS: APTT 43.7 Sec (23.4-35.0)
[2025-04-18 23:15] VITALS: BP 114/68
[2025-04-19] MEDS: TYLENOL PO (03:53)
[2025-04-19 05:34] LABS: Hematocrit 35.5 % (37.0-47.0); Hemoglobin 11.4 g/dL (12.0-16.0); Mean Corp Hgb Conc. 32.1 g/dL (33.0-37.0); Mean Corpuscular Volume 87.7 fL (81.0-99.0); Platelet Count 322 10^3/uL (130-400); Red Cell Dist. Width 14.1 % (11.5-14.5)
[2025-04-19 06:03] LABS: APTT 91.5 Sec (23.4-35.0)
[2025-04-19 06:07] LABS: Blood Urea Nitrogen 16 mg/dl (7-17); Calcium 9.5 mg/dl (8.4-10.2); Carbon Dioxide 25 mmol/L (22-30); Chloride 103 mmol/L (98-107); Estimated Creatinine Clearance 27 ml/min; Glucose 90 mg/dl (70-99); Potassium 4.6 mmol/L (3.5-5.1); Sodium 132 mmol/L (135-145); eGFR 54.53
--- NOTE | 2025-04-19 06:55 | W.PN.GS2 ---
Today's Communication / Plan
-
`
Assessment / Plan
-
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
POD #6 lap assisted right hemicolectomy
9/6 RUE edema with DVT noted on US - on therapeutic AC
pathology: invasive moderately differentiated adenocarcinoma; negative margins, 2 of 44 nodes positive; pT4a, pN1b
multiple BMs over last 24hrs
Plan: low residue diet
okay to start oral therapeutic AC for upper extremity DVT
OOB/Ambulate. PT/OT to follow
okay for d/c from surgical standpoint if tolerates dietary advancement
outpatient follow up with Dr Castro in ~2 weeks
Subjective Data
-
Date of Service: April 19, 2025
pt resting in hospital bed
denies pain
oriented only to self but pleasant
Objective Data
-
Intake and Output
04/17/25 04/18/25 04/19/25
06:59 06:59 06:59
Intake Total 120 / 120 360 / 360 1108.2 / 1108.2
Balance 120 / 120 360 / 360 1108.2 / 1108.2
Intake:
Oral fluids 120 / 120 360 / 360 960 / 960
IV piggybacks 148.2 / 148.2
Other:
Number of approximated MODERATE 3 3
amounts of urine
Number of approximated LARGE 5
amounts of urine
How many times incontinent 2
MODERATE amount urine
How many times incontinent 1 2
SATURATED amount urine
Vital Signs
Temp Pulse Resp BP Pulse Ox
97.6 F 81 16 114/68 97
04/18/25 23:15 04/18/25 23:15 04/18/25 23:15 04/18/25 23:15 04/18/25 23:15
Lab Results
04/19/25 05:16
04/19/25 05:16
Calcium 9.5 mg/dl (8.4-10.2) 04/19/25 05:16
Phosphorus 3.8 mg/dl (2.5-4.5) 04/14/25 07:26
Magnesium 1.7 mg/dl (1.6-2.3) 04/18/25 06:27
Total Bilirubin 0.5 mg/dl (0.2-1.3) 04/07/25 18:21
AST 22 U/L (14-36) 04/07/25 18:21
ALT 16 U/L (0-35) 04/07/25 18:21
Alkaline Phosphatase 70 U/L (38-126) 04/07/25 18:21
Total Protein 6.9 g/dl (6.3-8.2) 04/07/25 18:21
Albumin 4.4 g/dl (3.5-5.0) 04/07/25 18:21
Physical Exam
-
NAD AAOx1
ABD: soft, ND, minimal incisional tenderness
incisions with glue dressings
[2025-04-19] MEDS: MIRALAX PO (07:16)
[2025-04-19 08:10] VITALS: BP 126/72
--- NOTE | 2025-04-19 08:59 | CON.ONC ---
Consultation
-
Date Consultation Requested: 04/18/25
Date Consultation Performed: 04/19/25
Requesting Provider: Suzanna Roche MD
Performing Provider: Dr. Sepulveda
Reason for Consultation: Invasive Adenocarcinoma of the ascending colon
Impression
Impression
Invasive moderately differentiated colonic adenocarcinoma of the ascending colon with regional lymph node involvement (2/44 nodes)
Plan
Plan
Invasive moderately differentiated colonic adenocarcinoma of the ascending colon with regional lymph node involvement (2/44 nodes)
-Per path report: T4a, N1b, Stage 3 colon cancer
-Patient does qualify for adjuvant chemo therapy given regional lymph node involvement. However, given her age and dementia, it is unclear if she would be able to tolerate the required transportation to and from appointments, transfusions, and be
able to communicate potential adverse side effects. It is also unclear if she fully understands the nature of her disease, and can continue to remember the nature of her disease throughout treatment. It would not be inappropriate to adopt a watch
and wait approach given her age and the potential burdens of chemotherapy.
-Extensive phone discussion held with Randy (Patient's brother) and his and Dr. Sepulveda. It is their belief that she would not wish to undergo chemotherapy and that the goal should be to optimize her quality of life over aggressive treatments
that would potentially make her feel much worse, and that the risks of treatment outweigh the potential benefit she may see at her age.
-Patient should follow up outpatient with her PCP. A discussion should be held at that time about which, if any, surveillance methods she wishes to persue.
-Thank you for the consult. Will sign off. Dr. Sepulveda's office will be avaiable to see her outpatient as needed, should she desire.
Patient History
History of Present Illness
This is an 89 y/o female with pmhx of iron deficiency anemia and dementia who presented to the ED from her nursing facility on 04/07/2025 with 1 month of abdominal pain in the right lower quadrant and epigastric region. This has been accompanied by
decreased oral intake.
In the ED, her WBC was elevated at 11.9. CT scan of the abdomen and pelvis showed small, fluid-filled and dilated small bowel loops measuring up to 3.8cm with distal small bowel loops that are compressed suggesting small bowel obstruction without
discrete transition point. This could be secondary to adhesions in the pelvis and/or secondary to ill-defined possible cecal mass. An NG Tube was placed which drained bilious outputs.
She was admitted to the hospital for further workup. She was kept NPO with IV fluids, pain control, and antiemetics. Repeat CT Abdomen/Pelvis on 04/09/2025 showed suggestion of improvement of distal small bowel obstruction as well as a
redemonstration of probable cecal/proximal ascending colon mass, possibly partially obstructing.
Goals of care discussions were held with patient and her brother, Ruben, and ultimately she was scheduled for laparoscopic assisted right hemicolectomy which was completed on 04/13/2025. During the procedure, a palpable partially obstructing
ascending colon mass was noted in the proximal ascending colon with no gross evidence of advanced, local, regional or peritoneal/metastatic disease. Briefly postoperatively she experienced reactive leukocytosis of 15.3 on 04/14/2025, but her WBC
returned to normal the following day. On 04/18/2025, the pathology report returned showing invasive moderately differentiated colonic adenocarcinoma of the ascending colon with regional lymph node involvement (2/44 nodes).
She reports doing well today, and is pleasantly confused at baseline. She is aware she had surgery recently, and reports her abdomen feels tight. It is only painful if she coughs or sneezes or laughs. She denies any nausea, vomiting, diarrhea or
constipation. She is uncertain what originally brought her into the hospital or why she had surgery without prompting. She does not have any questions at this time.
Past-Medical/Surgical History
Dementia
Iron Deficiency Anemia
Chronic Kidney Disease
History of Hernia Repair (Unknown year)
Patient Medication
�Medication �Instructions �Recorded �Confirmed �Last Taken �Type
acetaminophen 325 mg tablet 650 mg PO Q6HPRN PRN mild pain 09/02/24 04/07/25 Unknown History
(Tylenol)
cholecalciferol (vitamin D3) 50 50 mcg PO DAILY Supplement 09/02/24 04/07/25 Unknown History
mcg (2,000 unit) capsule (Vitamin
D3)
cyanocobalamin (vitamin B-12) 1,000 mcg PO DAILY #30 tabs 09/02/24 04/07/25 Unknown Rx
1,000 mcg tablet
ferrous sulfate 325 mg (65 mg 325 mg PO DAILY #30 tabs 09/02/24 04/07/25 Unknown Rx
iron) tablet
levomefolate 7.5 mg-algal oil 1 cap PO DAILY Supplement 09/02/24 04/07/25 Unknown History
90.314 mg capsule (L-Methylfolate
Forte)
Active Medications
Generic Name Dose Route Start Last Admin
Trade Name Freq PRN Reason Stop Dose Admin
Acetaminophen 650 mg 04/19/25 07:00
Acetaminophen 325 Mg Tablet PO 05/17/25 06:59
Q4HPRN PRN
mild pain
Heparin Sodium 3,500 units 04/15/25 10:50 04/18/25 22:27
Heparin 80 Units/Kg Iv Rebolus IV 05/13/25 10:49 3,500 units
PRN PRN Administration
PTT < OR = 64 seconds
Heparin Sodium 1,700 units 04/15/25 10:51 04/17/25 18:31
Heparin 40 Units/Kg Iv Rebolus IV 05/13/25 10:50 1,700 units
PRN PRN Administration
PTT = 64.1 to 72.9 seconds
Hydromorphone HCl 0.5 mg 04/13/25 14:15 04/15/25 10:46
Hydromorphone 0.5 Mg/0.5 Ml Syringe IV 04/27/25 14:12 0.5 mg
Q3HPRN PRN Administration
severe pain
Heparin Sodium 25,000 units in 250 mls @ 0 mls/hr 04/16/25 22:00 04/18/25 16:07
Heparin 96121 Units/250 Ml IV 250 mls
PER PROTOCOL THERESA Administration
Protocol
Per Protocol
Ondansetron HCl 4 mg 04/08/25 05:04 04/08/25 16:13
Ondansetron 4 Mg/2 Ml Vial IV 05/06/25 05:03 4 mg
Q6HPRN PRN Administration
nausea and vomiting
Polyethylene Glycol 17 grams 04/18/25 14:00 04/19/25 07:16
Polyethylene Glycol Powder 17 Grams Packet PO 05/16/25 13:59 Not Given
DAILY THERESA
Sodium Chloride 0 flush 04/12/25 17:00
Sodium Chloride 0.9% (Flush) Syringe IV 05/10/25 16:59
PER PROTOCOL THERESA
Tramadol HCl 50 mg 04/15/25 12:23 04/18/25 14:21
Tramadol Hcl 50 Mg Tablet PO 05/13/25 12:22 50 mg
Q6HPRN PRN Administration
moderate pain
Review of Systems
-
Unable to obtain full review of systems at this time due to: Dementia
History Source: Patient
Constitutional: Denies Fever, Sleep Disturbance or Chills
Respiratory: Denies Cough or Trouble Breathing
Cardiac: Denies Chest Pain
GI: Denies Abdominal Pain, Nausea, Vomiting, Diarrhea, Constipated or Bloated
Musculoskeletal: Denies Joint Pain
Neuro: Denies Headache
Physical Exam
-
General: Well Developed, Well Nourished and Comfortable
Cardiology: Normal Sinus Rhythm, S1 and S2
Pulmonary: Clear
Skin: Warm and Dry
Psych: Calm and Apparent Dementia
Labs
Lab Results
WBC 8.0 10^3/uL (4.8-10.8) 04/19/25 05:16
RBC 4.05 10^6/uL (4.20-5.40) L 04/19/25 05:16
Hgb 11.4 g/dL (12.0-16.0) L 04/19/25 05:16
Hct 35.5 % (37.0-47.0) L 04/19/25 05:16
MCV 87.7 fL (81.0-99.0) 04/19/25 05:16
MCH 28.1 pg (27.0-31.0) 04/19/25 05:16
MCHC 32.1 g/dL (33.0-37.0) L 04/19/25 05:16
RDW 14.1 % (11.5-14.5) 04/19/25 05:16
Plt Count 322 10^3/uL (130-400) 04/19/25 05:16
MPV 9.7 fL (7.4-10.4) 04/19/25 05:16
Abs Immat Gran (auto) 0.0 10^3/uL (0-0.05) 04/11/25 07:45
Absolute Neuts (auto) 4.2 10^3/uL (1.4-6.5) 04/11/25 07:45
Absolute Lymphs (auto) 1.6 10^3/uL (1.2-3.4) 04/11/25 07:45
Absolute Monos (auto) 0.8 10^3/uL (0.1-0.6) H 04/11/25 07:45
Absolute Eos (auto) 0.2 10^3/uL (0-0.7) 04/11/25 07:45
Absolute Basos (auto) 0.0 10^3/uL (0-0.2) 04/11/25 07:45
Immature Gran % 0.3 % (0-0.5) 04/11/25 07:45
Neutrophils % 61.5 % (42.2-75.2) 04/11/25 07:45
Lymphocytes % 23.2 % (20.5-51.1) 04/11/25 07:45
Monocytes % 11.1 % (1.7-9.3) H 04/11/25 07:45
Eosinophils % 3.3 % (0-6) 04/11/25 07:45
Basophils % 0.6 % (0-2) 04/11/25 07:45
Creatinine 1.0 mg/dL (0.6-1.0) 04/19/25 05:16
Vital Signs
Vital Signs
Temp Pulse Resp BP Pulse Ox
97.7 F 83 16 126/72 95
04/19/25 08:10 04/19/25 08:10 04/19/25 08:10 04/19/25 08:10 04/19/25 08:10
--- NOTE | 2025-04-19 09:56 | CM ---
spoke with Jose L at [facility]
will also have bed avail tomorrow if patient not dc today
tt hospitalist
Low residue diet today
PLAN: [facility] SN[facility] when stable
Report #: [phone] Fax #: [phone]
[2025-04-19 11:30] LABS: APTT 128.0 Sec (23.4-35.0)
[2025-04-19 14:32] VITALS: BP 126/73
--- NOTE | 2025-04-19 15:26 | W.PN.HOSP.TC ---
Today's Communication/Plan
-
Postoperative care.
PT.
Transition of heparin to Eliquis for right upper extremity DVT
Discharge planning
Assessment / Plan
Assessment / Plan
A/P:
# SBO, on the basis of adhesion vs cecal mass
Tumor markers within normal limits
Status post laparoscopic assisted right hemicolectomy on 04/13 with intraoperative findings of partially obstructing colon mass pending final pathology.
Baker catheter removed on 04/14
diet was advanced to regular, then back to clears due to more distension noted on 04/17
Minimal bowel sound appreciated on 04/18, discussed with GS
Path with adeno CA, lymph nodes +.
Patient and POA declined adjuvant chemotherapy
# systolic murmur
Echo with preserved biventricular function no significant valvular abnormalities.
# Hypercalcemia, resolved
# Suspect CKD 3b
SCr 1.0 today
monitor renal function
# Dementia, unknown type
# RUE swelling with R brachial vein occlusive thrombus (DVT), provoked by IV line
Transition of heparin to Eliquis without loading dose
Plan is to anticoagulate for 3 months
# Hyponatremia
monitor
DVT PPX - heparin drip�Eliquis
Code status - Full Code
Dispo: HH per PT
DW RN
DW GS
Anticipated Discharge: Within 24 hours
Subjective/Interval History
-
Date of Service: April 19, 2025
Objective Data
-
Labs:
Laboratory Results
04/19/25 04/19/25 04/19/25
05:16 11:16 17:39
WBC 8.0
Hgb 11.4 L
Hct 35.5 L
Plt Count 322
APTT 91.5 H 128.0 H Pending
Sodium 132 L
Potassium 4.6
Chloride 103
Carbon Dioxide 25
BUN 16
Creatinine 1.0
Glucose 90
Calcium 9.5
Vital Signs:
Vital Signs
Temp Pulse Resp BP Pulse Ox
97.7 F 83 16 126/72 95
04/19/25 08:10 04/19/25 08:10 04/19/25 08:10 04/19/25 08:10 04/19/25 08:10
I&O
04/18/25 04/19/25 04/20/25
06:59 06:59 06:59
Intake Total 360 / 360 1108.2 / 1108.2
Balance 360 / 360 1108.2 / 1108.2
Physical Exam
-
General: Well Developed and No Apparent Distress
HEENT: Normocephalic, Atraumatic and Moist Mucous Membranes
Respiratory: Clear to Auscultation
Cardiac: Regular Rhythm and S1/S2; Negative Murmur, Rub or Gallop
GI: Soft, Nontender, Nondistended and Normal Bowel Sounds; Negative Organomegaly
Rectal: Deferred by Provider
Musculoskeletal: No Clubbing, No Cyanosis and No Edema
Skin: Negative Rash
Neuro: Nonfocal/Grossly Intact
[2025-04-19 15:35] VITALS: BP 111/58
[2025-04-19] MEDS: ELIQUIS 5 MG PO (19:34)
[2025-04-19 23:19] VITALS: BP 118/82
[2025-04-20 07:35] VITALS: BP 119/73
[2025-04-20] MEDS: ELIQUIS 5 MG PO (08:55)
[2025-04-20] MEDS: MIRALAX PO (08:55)
--- NOTE | 2025-04-20 09:22 | CM ---
Addendum entered by Tiff Howell 04/20/25 10:05:
1:30PM fruit picker - Jose L from [facility] notified
Addendum entered by Tiff Howell 04/20/25 09:41:
transportation forms on chart
Addendum entered by Tiff Howell 04/20/25 09:29:
[facility] today
Original Note:
tt hospitalist stable for dc today
spoke with Jose L at [facility]
spoke with brother Ruben
IMM explained & in chart
PLAN: [facility] when stable
Report #: [phone] Fax #: [phone]
--- NOTE | 2025-04-20 09:31 | W.DS.TRANS ---
DC Summary - Ordnance Technician
-
Discharge Instructions:
Discharge Diagnosis/Procedures small bowel obstruction with cecal mass, status
post laparoscopic assisted right hemicolectomy
on 04/13
RUE DVT
Diet As tolerated
Activity As tolerated
Driving Restrictions As prior to admission
Blood Work CBC every week (while on anticoagulation),
result to PCP
Instructions:
Stand-Alone Forms:
Changes to Home Medications: Yes
Discharge Medications:
DC Medications w/original date entered in [employer]
acetaminophen 325 mg tablet (Tylenol) 650 mg PO Q6HPRN PRN mild pain 09/02/24
cholecalciferol (vitamin D3) 50 mcg (2,000 unit) capsule (Vitamin D3) 50 mcg PO DAILY Supplement 09/02/24
cyanocobalamin (vitamin B-12) 1,000 mcg tablet 1,000 mcg PO DAILY #30 tabs 09/02/24
apixaban 5 mg tablet (Eliquis) 5 mg PO BID #30 tabs 04/20/25
pantoprazole 20 mg tablet,delayed release (Protonix) 20 mg PO DAILY #30 tabs 04/20/25
Home Medication Changes
Eliquis initiated for RUE DVT with plan for 2-3 month of anticoagulation
PPI added
Pending Results: No
--- NOTE | 2025-04-20 10:50 | W.PN.GS2 ---
Today's Communication / Plan
-
`
Assessment / Plan
-
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
POD #7 lap assisted right hemicolectomy
9/ RUE edema with DVT noted on US - on therapeutic AC
pathology: invasive moderately differentiated adenocarcinoma; negative margins, 2 of 44 nodes positive; pT4a, pN1b
multiple BMs
Plan: low residue diet
DC from surgical perspective
Subjective Data
-
Date of Service: April 20, 2025
Patient seen and examined.
Eating breakfast and tolerating it well.
Denies abdominal pain. No nausea or vomiting. Continued bowel movements documented.
Objective Data
-
Intake and Output
04/19/25 04/20/25 04/21/25
06:59 06:59 06:59
Intake Total 1108.2 / 1108.2 180 / 180
Balance 1108.2 / 1108.2 180 / 180
Intake:
Oral fluids 960 / 960 180 / 180
IV piggybacks 148.2 / 148.2
Other:
Number of approximated MODERATE 2
amounts of urine
Number of approximated LARGE 5
amounts of urine
How many times incontinent 2 1
MODERATE amount urine
How many times incontinent 2
SATURATED amount urine
Vital Signs
Temp Pulse Resp BP Pulse Ox
98.3 F 86 16 119/73 97
04/20/25 07:35 04/20/25 07:35 04/20/25 07:35 04/20/25 07:35 04/20/25 07:35
Lab Results
04/19/25 05:16
04/19/25 05:16
Calcium 9.5 mg/dl (8.4-10.2) 04/19/25 05:16
Phosphorus 3.8 mg/dl (2.5-4.5) 04/14/25 07:26
Magnesium 1.7 mg/dl (1.6-2.3) 04/18/25 06:27
Total Bilirubin 0.5 mg/dl (0.2-1.3) 04/07/25 18:21
AST 22 U/L (14-36) 04/07/25 18:21
ALT 16 U/L (0-35) 04/07/25 18:21
Alkaline Phosphatase 70 U/L (38-126) 04/07/25 18:21
Total Protein 6.9 g/dl (6.3-8.2) 04/07/25 18:21
Albumin 4.4 g/dl (3.5-5.0) 04/07/25 18:21
Physical Exam
-
NAD AAO x 3
ABD: Soft, nondistended, nontender. Surgical sites healing well with glue dressings.
--- NOTE | 2025-04-20 12:39 | PTCARENOTE ---
Report called to SHEFALI Bettencourt at [facility]. Paperwork faxed per facility request. shuttle fitting supervisor time for 1330. Patient's IV removed. Patient dressed by this RN and PCTKaden. PNA vaccine to be administered prior to departure.
== END 2025-04-20 14:00 | DRG 330 ==
LOC: 4 WEST ACU 03:52
PROVIDERS: Emergency Medicine; Internal Medicine; Registered Nurse; Surgery; ADMITTING PHYSICIAN Internal Medicine; ATTENDING PHYSICIAN Internal Medicine; CONSULT PHYSICIAN Surgery; EMERGENCY PHYSICIAN Emergency Medicine; FAMILY PHYSICIAN Hospitalist; OTHER PHYSICIAN Internal Medicine Hematology & Oncology
PROC: 0D9670Z Drainage of Stomach with Drainage Device, Via Natural or Artificial Opening (ICD-10-PCS; 2025-04-08)
PROC: 0DTF4ZZ Resection of Right Large Intestine, Percutaneous Endoscopic Approach (ICD-10-PCS; 2025-04-13)
DX: C18.2 Malignant neoplasm of ascending colon (principal); C77.2 Secondary and unspecified malignant neoplasm of intra-abdominal lymph nodes; K56.51 Intestinal adhesions [bands], with partial obstruction; E87.1 Hypo-osmolality and hyponatremia; I82.621 Acute embolism and thrombosis of deep veins of right upper extremity; D50.9 Iron deficiency anemia, unspecified; D63.1 Anemia in chronic kidney disease; F03.90 Unspecified dementia, unspecified severity, without behavioral disturbance, psychotic disturbance, mood disturbance, and anxiety; K41.90 Unilateral femoral hernia, without obstruction or gangrene, not specified as recurrent; E83.52 Hypercalcemia; N18.32 Chronic kidney disease, stage 3b; Z96.651 Presence of right artificial knee joint; Z90.710 Acquired absence of both cervix and uterus
CPT/HCPCS: 43752; 71045; 74018; 74176; 74177; 80048; 80053; 82378; 83690; 83735; 84100; 85025; 85027; 85730; 86301; 87070; 88309; 88342; 93005; 93306; 93971; 96360; 97162; 97164; 97167; 97530; 97535; 99285; J1335; Q9967

== ENCOUNTER → 2025-04-24 10:43 | Outpatient (REF) | payer OTHER, MEDICARE, BC, SELFPAY ==
[2025-04-24 11:15] LABS: Hematocrit 32.9 % (37.0-47.0); Hemoglobin 10.5 g/dL (12.0-16.0); Mean Corp Hgb Conc. 31.9 g/dL (33.0-37.0); Mean Corpuscular Volume 90.6 fL (81.0-99.0); Platelet Count 312 10^3/uL (130-400); Red Cell Dist. Width 14.2 % (11.5-14.5)
== END ==
LOC: OLABN 10:43
PROVIDERS: ATTENDING PHYSICIAN Student in an Organized Health Care Education/Training Program
DX: I82.621 Acute embolism and thrombosis of deep veins of right upper extremity (principal)
CPT/HCPCS: 36415; 85027

== ENCOUNTER → 2025-05-01 11:21 | Outpatient (REF) | payer OTHER, MEDICARE, BC, SELFPAY ==
[2025-05-01 12:27] LABS: Hematocrit 32.8 % (37.0-47.0); Hemoglobin 10.1 g/dL (12.0-16.0); Mean Corp Hgb Conc. 30.8 g/dL (33.0-37.0); Mean Corpuscular Volume 90.9 fL (81.0-99.0); Platelet Count 429 10^3/uL (130-400); Red Cell Dist. Width 13.9 % (11.5-14.5)
== END ==
LOC: OLABN 11:21
PROVIDERS: ATTENDING PHYSICIAN Student in an Organized Health Care Education/Training Program
DX: I82.621 Acute embolism and thrombosis of deep veins of right upper extremity (principal)
CPT/HCPCS: 36415; 85027

== ENCOUNTER → 2025-05-08 10:17 | Outpatient (REF) | payer OTHER, MEDICARE, BC, SELFPAY ==
[2025-05-08 11:14] LABS: Hematocrit 33.9 % (37.0-47.0); Hemoglobin 10.9 g/dL (12.0-16.0); Mean Corp Hgb Conc. 32.2 g/dL (33.0-37.0); Mean Corpuscular Volume 89.2 fL (81.0-99.0); Platelet Count 393 10^3/uL (130-400); Red Cell Dist. Width 13.2 % (11.5-14.5)
== END ==
LOC: OLABN 10:17
PROVIDERS: ATTENDING PHYSICIAN Student in an Organized Health Care Education/Training Program
DX: I82.621 Acute embolism and thrombosis of deep veins of right upper extremity (principal); D64.9 Anemia, unspecified
CPT/HCPCS: 36415; 85027

== ENCOUNTER 2025-07-26 16:53 | Emergency (ER) | payer MEDICARE, BC, SELFPAY ==
[2025-07-26 17:44] VITALS: BMI 24.1
--- NOTE | 2025-07-26 17:47 | ED.GENMED ---
Addendum entered and electronically signed by Brittni Boland DO 07/26/25 21:30:
Patient's brother did return my phone call. I reviewed with both him and his who was on the telephone all test results, no indication for admission today. I discussed with them benefit of follow-up with primary care physician for medication
adjustment to help control her behaviors related to her dementia. They agree with plan for discharge and have no questions at the current time.
Original Note:
History of Present Illness
General
Chief Complaint: Change in Mental Status
Time Seen by Provider: 07/26/25 17:37
Nursing documentation reviewed up to this point in time: agreed with
History of Present Illness
History of Present Illness:
89-year-old female brought to the ER by EMS for evaluation of altered behavior noted by [facility] staff today. Patient has a history of dementia but is typically pleasant. Today she has been very argumentative, very out of character behavior
seen. No reported recent illness. She is accompanied by her brother and [id number] at the bedside who reports that she is not typically this flippant with her demeanor. Patient is unable to provide any relevant history for me. In review of
her [facility] paperwork, she is on long-term anticoagulation with Eliquis.
I reviewed most recent discharge summary dated 04/20/2025, Dr. Melgoza. 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
biventricular functions and no significant valve abnormalities, she has chronic kidney disease stage IIIb, hypercalcemia that improved with hydration during her hospitalization And dementia. During this hospitalization she underwent a lap assisted
right hemicolectomy and was diagnosed with adenocarcinoma
Past History
Past History
ED Past Medical History: Renal failure (CKD), Psychiatric (dementia) and Other (anemia)
ED Past Surgical History: Gynecological (hysterectomy)
Review of Systems
Review of Systems
Allergies reviewed?: Yes
Phy Exam
Physical Exam
Physical Exam:
Patient is awake, alert, appears in no acute distress, head is NCAT, PERRL, EOMI mucous membranes tacky, conjunctiva pink, heart regular rate and rhythm with 2 out of 6 systolic ejection murmur heard best at the apex, lungs are clear to auscultation
without wheezes rales or rhonchi, no JVD, abdomen is soft and nontender on palpation, extremities without edema, GCS is 14 due to confusion, moving all extremities symmetrically without focal deficit
Course
Orders/Labs/Results
Orders:
Orders
07/26/25 17:44
CT Head W/o Iv Contrast Urgent
Comment:
Reason For Exam: altered mental status
Cardiac Monitoring- Treatment ONCE
0.9% Sodium Chloride 500 ml [Nss] 500 ml IV BOLUS
07/26/25 17:45
Electrocardiogram (*1) Stat
Reason for Study: Other
Other Reason for Exam: neuro symptoms
EKG- Treatment ONCE
07/26/25 18:32
Complete Blood Count/With Diff Urgent
Comprehensive Metabolic Panel Urgent
PTT Urgent
Prothrombin Time Urgent
Urinalysis Reflex To Culture Urgent
Date Specimen was Collected: 07/26/25
Time Specimen was Collected: 18:28
Influenza A+B Rapid Molecular Urgent
CIPRIANO Source: Nasal Swab
Specimen Description:
07/26/25 18:33
COVID-19 Antigen Urgent
Source: Nasal Swab
07/26/25 20:39
Lorazepam [Ativan] 0.5 mg PO NOW STA
Abnormal Lab Results
07/26/25
18:32
MCHC 31.4 L g/dL
(33.0-37.0)
RDW 15.4 H %
(11.5-14.5)
Absolute Lymphs (auto) 1.0 L 10^3/uL
(1.2-3.4)
Absolute Monos (auto) 0.8 H 10^3/uL
(0.1-0.6)
Lymphocytes % 17.2 L %
(20.5-51.1)
Monocytes % 12.9 H %
(1.7-9.3)
BUN 24 H mg/dl
(7-17)
Creatinine 1.3 H mg/dL
(0.6-1.0)
Glucose 106 H mg/dl
(70-99)
Total Protein 6.2 L g/dl
(6.3-8.2)
07/26/25 18:32
07/26/25 18:32
Vital Signs
Initial and Last Documented VS:
Initial Vital Signs
Temp
97.8 F
07/26/25 16:57
Last Documented Vital Signs
Temp Pulse Resp BP Pulse Ox
97.8 F 86 17 121/80 95
07/26/25 16:57 07/26/25 20:00 07/26/25 20:00 07/26/25 20:00 07/26/25 20:00
MDM/Problems Addressed
Differential Diagnosis Includes:
Differential diagnosis to consider but not limited to occult infection, UTI, lecture light dyscrasia, dehydration, progression of dementia, intracranial hemorrhage, intracranial mass along with other etiologies considered
*Pulse Oximetry
Patient hypoxic: no
*EKG
Interpreted by ED Provider?: Yes (I independently viewed and interpreted twelve-lead EKG showing normal sinus rhythm, rate 79, normal axis, normal intervals, possible left atrial enlargement, no ST elevation, this is a normal variant, improved rate
compared to prior EKG from 04/07/2025)
*Java Developer Analyst Interpretation
Rate: normal (I independently viewed and interpreted rhythm strip showing normal sinus rhythm, no ectopy)
*Critical Care Note
Total Time (30-74mins, 75-104mins- exclusive of procedures): Not Applicable
Update Note
Update Note:
Pt resting comfortably, cooperative while observed in the ED. no acute findings on CT head, labs. Minimal SHAMA noted. IV fluids had been administered. Will plan for discharge back to long-term care facility as behaviors are likely related to her
dementia. I called brother's phone number and had to leave a voicemail, Ruben Gayle as listed on her [facility] paperwork to update him on patient's status. Await callback
ED Attending Note
-
Portions of this chart may have been created with voice recognition software.� Occasional wrong word or��sound alike� substitutions may have occurred due to the inherent limitations of voice recognition software.
Discharge Plan
Departure
Patient Disposition: Home (Routine Discharge)
Date of Disposition: 07/26/25
Time of Disposition: 20:39
Patient with high blood pressure during this ER visit?: No
Discharge Problem:
Dementia with behavioral disturbance
Instructions: Dementia (DC)
Prescriptions:
No Action
acetaminophen [Tylenol] 325 mg Tablet
650 mg PO Q6HPRN PRN (Reason: mild pain)
cholecalciferol (vitamin D3) [Vitamin D3] 50 mcg (2,000 unit) Capsule
50 mcg PO DAILY
cyanocobalamin (vitamin B-12) 1,000 mcg Tablet
1,000 mcg PO DAILY Qty: 30 0RF
Eliquis 5 mg Tablet
5 mg PO BID Qty: 30 0RF
pantoprazole [Protonix] 20 mg tablet,delayed release (DR/EC)
20 mg PO DAILY Qty: 30 0RF
ferrous sulfate 325 mg (65 mg iron) Tablet
325 mg PO DAILY
L-Methylfolate Forte 7.5-90.314 mg Capsule
1 cap PO DAILY
Referrals:
DARYL GOOD [Other]
Activity Restrictions/Additional Instructions:
Please follow-up with your primary care physician tomorrow to discuss further treatment of progression of your dementia. Return to the ED for any concerns
Interventions
Interventions:
*General Assessment Last Done: 07/26/25 17:44
*Neglect/Abuse Screening Last Done: 07/26/25 17:44
*ED COVID-19 Vaccine History Last Done: 07/26/25 19:01
*ED Influenza Vaccine History Last Done: 07/26/25 19:01
[facility] Fall Risk Assessment Tool Last Done: 07/26/25 17:44
*Risk Screen - Suicide (C-SSRS) Last Done: 07/26/25 19:36
ED- Neurological Assessment Last Done: 07/26/25 17:44
ED Swallowing Screen Last Done: 07/26/25 17:44
Discharge Date and Time
Print Language: [id number]
[2025-07-26 18:00] VITALS: BP 134/73
[2025-07-26] MEDS: NSS 500 IV (18:41)
[2025-07-26 18:52] LABS: Urine Character Clear (Clear)
[2025-07-26 18:55] LABS: Hematocrit 39.8 % (37.0-47.0); Hemoglobin 12.5 g/dL (12.0-16.0); Mean Corp Hgb Conc. 31.4 g/dL (33.0-37.0); Mean Corpuscular Volume 89.4 fL (81.0-99.0); Nucleated Red Blood Cells % 0 %; Platelet Count 307 10^3/uL (130-400); Red Cell Dist. Width 15.4 % (11.5-14.5)
[2025-07-26 18:58] LABS: INR 1.02; PT 13.2 Sec (11.4-14.6)
[2025-07-26 18:59] LABS: APTT 28.2 Sec (23.4-35.0)
[2025-07-26 19:00] VITALS: BP 134/74
[2025-07-26 19:02] LABS: ALT (SGPT) 17 U/L (0-35); AST (SGOT) 21 U/L (14-36); Albumin 3.8 g/dl (3.5-5.0); Alkaline Phosphatase 65 U/L (38-126); Blood Urea Nitrogen 24 mg/dl (7-17); Calcium 9.3 mg/dl (8.4-10.2); Carbon Dioxide 29 mmol/L (22-30); Chloride 101 mmol/L (98-107); Estimated Creatinine Clearance 19 ml/min; Glucose 106 mg/dl (70-99); Potassium 4.8 mmol/L (3.5-5.1); Sodium 135 mmol/L (135-145); Total Protein 6.2 g/dl (6.3-8.2); eGFR 39.55
[2025-07-26 19:09] LABS: COVID-19 Antigen Negative (Negative)
[2025-07-26 20:00] VITALS: BP 121/80
[2025-07-26] MEDS: ATIVAN 0.5 MG PO (20:47)
== END 2025-07-26 22:48 | disposition home or self-care (01) ==
LOC: EMR 16:53
PROVIDERS: EMERGENCY PHYSICIAN Emergency Medicine
DX: F03.918 Unspecified dementia, unspecified severity, with other behavioral disturbance (principal); N18.32 Chronic kidney disease, stage 3b; Z79.01 Long term (current) use of anticoagulants; Z90.710 Acquired absence of both cervix and uterus; Z86.718 Personal history of other venous thrombosis and embolism
CPT/HCPCS: 99284; 96360; 96361; 70450; 80053; 81003; 85025; 85610; 85730; 87502; 87811; 93005